=== PATIENT | female | born 1980 | race Caucasian/White ===

== ENCOUNTER 2020-09-18 18:21 | Emergency (ER) | payer MEDICAID, SELFPAY ==
[2020-07-27 14:38] VITALS: BMI 29.6
[2020-09-18 18:22] VITALS: BP 117/87; PULSE 100; RESP 18; TEMP 36.2; O2SAT 98; BMI 22.4
--- NOTE | 2020-09-18 19:09 | ED.VIS.BACK ---
HPI History of Present Illness Chief Complaint: Back Detail of Chief Complaint: Atraumatic low back pain. Informant: patient Onset/Context/Timing Onset: Weeks Injury: lifting Timing: Continuous Quality: Dull and Aching Location: Lumbar Current Severity: Mild Maximum Severity: Mild Worsened by: improves with Movement Relieved by: Remaining Still Narrative Narrative: 39-year-old female history of back problems and chronic pain management in the past. States that she was bending and lifting things and thinks she injured her lower back. States she is had pain for last 2 weeks. Denies any fever. No falls or trauma. No dysuria or pain with urination. She denies any fever or chills. She denies any weakness to her lower extremities. She denies any prior back surgery. Prior similar symptoms: Yes Recent Illness/Hospitalization: No PFSH PFSH Medical History Back pain Diarrhea Fever Headache Infected dental caries Home Medications diazepam [Valium] 5 mg PO TID PRN 4 Days #10 tab 09/18/20 [Rx Last Taken Unknown] Allergy/AdvReac Type Severity Reaction Status Date / Time No Known Allergies Allergy Verified 09/18/20 18:22 Social History Smoking Status: Current every day smoker tobacco type: cigarettes ROS ROS ED ROS Narrative Denies recent illness. Review of Systems ROS Unobtainable: Denies due to encephalopathy Constitutional Constitutional ED: Denies fever(s) Eyes Eyes: Denies change in vision ENT ENT ED: Denies ear pain or sore throat Cardiovascular Cardiovascular: Denies chest pain Respiratory/Chest Respiratory/Chest: Denies dyspnea Gastrointestinal Gastrointestinal: Denies abdominal pain, nausea or vomiting Genitourinary Genitourinary ED: Denies dysuria Musculoskeletal Musculoskeletal: Reports back pain Integumentary Denies rash Neurologic Neurologic: Denies headache(s) Psychiatric Psychiatric: Denies depression Endocrine Endocrinology: Denies polyuria Hematologic/Lymphatic Hematologic/Lymphatic: Denies easy bruising Allergic/Immunologic Allergic/Immunologic ED: Denies urticaria EXAM Physical Exam Narrative Exam Narrative: Middle-aged female no acute distress vital signs stable afebrile. Exam unremarkable. Abdomen soft nontender. Normal bowel sounds no peritoneal signs. Lungs are clear. Heart regular rate and rhythm. Back exam from a lying to a sitting upright position she had low back pain. There is reproducible paralumbar soft tissue tenderness consistent with myofascial strain and spasm of the right lower back. No discoloration. No redness or warmth. No bruising. Both lower extremities are neurovascularly intact with 5/5 motor strength. No cauda equina. Normal range of motion. Normal dorsi plantar flexion. Negative straight leg raise bilaterally. Const Vital Signs: 09/18/20 18:22 Temperature 97.1 F L Temperature Source Temporal Pulse Rate 100 Respiratory Rate 18 Blood Pressure 117/87 H Blood Pressure Mean 97 Pulse Ox 98 Oxygen Delivery Method Room Air HEENT Reports moist mucous membranes Negative for trauma or tenderness Eyes PERRL and EOMs intact bilaterally Neck no lymphadenopathy, supple and no JVD General: Negative for tenderness Resp normal respiratory effort and clear to auscultation bilaterally Cardio regular rate, regular rhythm and no murmurs GI normal to inspection, nondistended, normoactive bowel sounds, soft to palpation, non-tender and non-distended Back/Spine Negative for normal to inspection Thoracic Spine / Upper Back: paraspinal muscle tenderness Extremity normal to inspection General Extremety ED: Negative for edema or tenderness General Extremity: Negative for edema Neuro oriented x3 and no sensory deficits noted Sensorium / Orientation: alert Psych mental status grossly normal Skin no rashes or lesions noted and no wounds MDM MDM MDM Narrative Medical decision making narrative: Patient's history exam is consistent with myofascial strain and spasm of the right paralumbar area. Given an IM injection of Toradol and p.o. Valium. Prescription for limited Valium at home and Motrin. Discharge Plan Triage Chief Complaint: Back ED Provider: Gerald Michael Dx/Rx/DC Orders Clinical Impression: Back strain, Muscle spasm Instructions: ED Back Sprain/Strain, ED Muscle Spasm Prescriptions: New diazepam [Valium] 5 mg tablet 5 mg PO TID PRN (Reason: muscle spasm) 4 Days Qty: 10 RF: 0 Primary Care Provider: Care Physician,No Primary Referrals: Connor Gallegos MD [NON-STAFF] - 1 Week if not improving Care Physician,No Primary [Primary Care Provider] - Activity Restrictions/Additional Instructions: Hot shower warm bath to decrease pain and inflammation and decrease muscle spasm. Massage. Motrin 600 mg 3 times a day for the next 5 days. Valium as needed as a muscle relaxant. Do not drink or drive while using the Valium. Disposition Disposition: Home, self care
[2020-09-18] MEDS: diazePAM 5 MG Tablet 10 MG PO (19:17)
[2020-09-18] MEDS: Ketorolac 60 MG/2 ML Vial IM (19:17)
== END 2020-09-18 19:34 | disposition home or self-care (01) ==
PROVIDERS: Emergency Provider Emergency Medicine
DX: S39.012A Strain of muscle, fascia and tendon of lower back, initial encounter (principal); M62.830 Muscle spasm of back; X50.1XXA Overexertion from prolonged static or awkward postures, initial encounter; Y93.9 Activity, unspecified; Y92.9 Unspecified place or not applicable; F17.210 Nicotine dependence, cigarettes, uncomplicated
CPT/HCPCS: 96372; 99283

== ENCOUNTER 2020-10-18 06:25 | Emergency (ER) | payer MEDICAID, SELFPAY ==
[2020-10-18 06:26] VITALS: BP 151/91; PULSE 99; RESP 16; TEMP 36.2; O2SAT 100; BMI 21.4
--- NOTE | 2020-10-18 06:34 | CT_ITS ---
STUDY: CT ABDOMEN AND PELVIS WITHOUT CONTRAST REASON FOR EXAM: Female, 39 years old patient with left-sided flank pain. RADIATION DOSAGE (If Supplied By Facility): CTDIvol = ( 6.05 ) mGy, DLP = ( 270.46 ) mGycm TECHNIQUE: Transaxial images were obtained from the dome of the diaphragm to the symphysis pubis without oral contrast, and without intravenous contrast. Sagittal and coronal images were reconstructed. Individualized dose optimization techniques were used for this CT. COMPARISON: None. FINDINGS: The visualized lung bases are unremarkable. The visualized portions of the heart are within normal limits. Normal liver. There are multiple gallstones. Normal spleen. Normal pancreas. Normal bilateral adrenal glands. Normal right kidney. Normal left kidney. Normal visualized stomach. Is no obvious dilated bowel, ascites or pneumoperitoneum. The small bowel has a grossly normal appearance. Normal colon. The appendix is visualized and appears normal. There is mild atherosclerotic calcification of the abdominal aorta, without a demonstrated aneurysm. There is venous distention of the inferior vena cava (IVC). Normal retroperitoneum. Normal urinary bladder. Normal visualized uterus. Normal abdominal wall. Normal osseous structures. CT/Abdomen/Pelvis without Cont IMPRESSION: No CT evidence for hydronephrosis, hydroureter or radiopaque ureteral calculus. Electronically Signed: Montserrat Martinez MD at 8:51 EDT , Service support ,
--- NOTE | 2020-10-18 06:36 | EX.ED.DYSGE1 ---
HPI History of Present Illness Chief Complaint: Flank Pain Informant: patient Onset/Context/Timing Onset: Days (1 week) Context: Gradual Onset Timing: Waxes and wanes Current Severity: Moderate Maximum Severity: Severe Narrative Narrative: Patient presents with a 1 week history of left flank pain. She thinks that she strained something as she felt a pulling sensation after sitting up suddenly. She points to the left lower flank of her back and around the lateral side of her waist and describing the area of pain. She states last night she just could not get comfortable so she came in for evaluation. She is been taking ibuprofen for pain, last dose last evening. She denies urinary symptoms. She denies possibility of . No known history of ovarian cyst. [facility] Medical History Back pain Infected dental caries Home Medications cyclobenzaprine 10 mg PO BID PRN #10 tab 10/18/20 [Rx Last Taken Unknown] lidocaine [Lidoderm] 1 patch TOPICAL DAILY #6 ea 10/18/20 [Rx Last Taken Unknown] oxycodone-acetaminophen [Percocet] 1 tab PO Q6H PRN 3 Days #10 tab 10/18/20 [Rx Last Taken Unknown] Allergy/AdvReac Type Severity Reaction Status Date / Time No Known Allergies Allergy Verified 09/23/20 17:11 Social History Smoking Status: Current every day smoker tobacco type: cigarettes ROS ROS ED Constitutional Constitutional ED: Denies chills or fever(s) Eyes Eyes: Denies change in vision ENT ENT ED: Denies sore throat Cardiovascular Cardiovascular: Denies chest pain Respiratory/Chest Respiratory/Chest: Denies cough or dyspnea Gastrointestinal Gastrointestinal: Reports abdominal pain; Denies diarrhea, nausea or vomiting Genitourinary Genitourinary ED: Denies dysuria or hematuria Musculoskeletal Musculoskeletal: Reports back pain Integumentary Denies rash Neurologic Neurologic: Denies headache(s) or weakness Psychiatric Psychiatric: Denies anxiety or depression Endocrine Endocrinology: Denies polydipsia or polyuria Allergic/Immunologic Allergic/Immunologic ED: Denies urticaria EXAM Physical Exam Const Vital Signs: 10/18/20 06:26 10/18/20 08:19 Temperature 97.1 F L Temperature Source Temporal Pulse Rate 99 68 Respiratory Rate 16 16 Blood Pressure 151/91 H 124/84 H Blood Pressure Mean 111 97 Pulse Ox 100 94 Oxygen Delivery Method Room Air Room Air Positive well nourished and well developed General Appearance ED: well developed HEENT Reports normocephalic and head/scalp atraumatic Eyes PERRL and EOMs intact bilaterally Neck supple Chest Wall inspection of chest normal and palpation of chest normal Resp normal respiratory effort and clear to auscultation bilaterally Cardio regular rate and regular rhythm GI normal to inspection, nondistended, normoactive bowel sounds and non-tender Palpation: soft Back/Spine no CVA tenderness Back/Spine Narrative: Tenderness in the left lower back. No overlying skin changes. Extremity normal to inspection Neuro oriented x3 and no sensory deficits noted Sensorium / Orientation: alert Motor Exam: strength 5/5 throughout Psych mental status grossly normal Skin no rashes or lesions noted MDM MDM MDM Narrative Medical decision making narrative: Patient was given morphine, Toradol, Zofran, IV fluids. Lab work, urinalysis, CT flank obtained. Lab Data Attestation: I reviewed the patient's lab results. Labs: Laboratory Results - last 24 hr 10/18/20 10/18/20 10/18/20 07:10 07:10 07:10 WBC 8.3 RBC 4.62 Hgb 13.0 Hct 40.9 MCV 88.5 MCH 28.1 MCHC 31.8 L RDW Std Deviation 41.3 RDW Coeff of David 12.8 Plt Count 257 MPV 11.0 Immature Gran % (Auto) 0.200 Neut % (Auto) 47.4 Lymph % (Auto) 43.5 H [place] % (Auto) 6.2 Eos % (Auto) 1.6 Baso % (Auto) 1.1 H Absolute Neuts (auto) 3.9 Absolute Lymphs (auto) 3.61 Nucleated RBC % 0 Sodium 139 Potassium 3.4 L Chloride 109 H Carbon Dioxide 25.0 Anion Gap 5 BUN 8 Creatinine 0.68 Estim Creat Clear Calc 97.97 Est GFR (MDRD) Af Amer 121 Est GFR (MDRD) Non-Af 100 BUN/Creatinine Ratio 11.7 Glucose 121 H Calcium 8.5 Serum , Qual NEGATIVE Urine Color Urine Clarity Urine pH Ur Specific [place] Urine Protein Urine Glucose (UA) Urine Ketones Urine Occult Blood Urine Nitrite Urine Bilirubin Urine Urobilinogen Ur Leukocyte Esterase Urine RBC Urine WBC Ur Squamous Epith Cells Urine Bacteria Urine Mucus 10/18/20 07:35 WBC RBC Hgb Hct MCV MCH MCHC RDW Std Deviation RDW Coeff of David Plt Count MPV Immature Gran % (Auto) Neut % (Auto) Lymph % (Auto) [place] % (Auto) Eos % (Auto) Baso % (Auto) Absolute Neuts (auto) Absolute Lymphs (auto) Nucleated RBC % Sodium Potassium Chloride Carbon Dioxide Anion Gap BUN Creatinine Estim Creat Clear Calc Est GFR (MDRD) Af Amer Est GFR (MDRD) Non-Af BUN/Creatinine Ratio Glucose Calcium Serum , Qual Urine Color Yellow Urine Clarity Sl. Cloudy Urine pH 6.0 Ur Specific [place] 1.030 Urine Protein 30 H Urine Glucose (UA) Normal Urine Ketones Negative Urine Occult Blood 250 H Urine Nitrite Negative Urine Bilirubin Negative Urine Urobilinogen 1 H Ur Leukocyte Esterase 25 H Urine RBC 25-50 SEEN Urine WBC 0-5 SEEN Ur Squamous Epith Cells 0-5 SEEN Urine Bacteria 1+ Urine Mucus 2+ Radiography Diagnostic Testing: Radiology Impression Abdomen/Pelvis CT 10/18/20 06:34 IMPRESSION: No CT evidence for hydronephrosis, hydroureter or radiopaque ureteral calculus. Electronically Signed: Montserrat Martinez MD at 8:51 EDT , Service support , Treatment and Re-Evaluation Comments:: Upon returning from CT patient states that she still cannot comfortable and wanted something to help her relax and sleep. She was given an additional dose of morphine along with a dose of Flexeril. As soon as CT result was available I went back to evaluate the patient. She is sitting upright in bed crying. She states she still cannot get comfortable. CT does not reveal any evidence of kidney stone. There is a small amount of blood in her urine but she did just finished her menstrual cycle it may be secondary to this. Another option would be a radiolucent kidney stone. Regardless treatment will be the same. I did do an oars report. Patient's only had one prescription for a controlled substance in the last year. She will be given prescription for Lidoderm patch, Percocet, Flexeril. She is referred to local PCP to establish care and patient was advised that she must follow-up. She voices understanding and agreement. Discharge Plan Triage Chief Complaint: Flank Pain ED Provider: Yamel Russell Dx/Rx/DC Orders Clinical Impression: Back strain Instructions: ED Back Sprain/Strain Prescriptions: New oxycodone-acetaminophen [Percocet] 5-325 mg tablet 1 tab PO Q6H PRN (Reason: pain) 3 Days Qty: 10 RF: 0 cyclobenzaprine 10 mg tablet 10 mg PO BID PRN (Reason: muscle spasm) Qty: 10 RF: 0 lidocaine [Lidoderm] 5 % adhesive patch,medicated 1 patch topical DAILY Qty: 6 RF: 0 Primary Care Provider: Care Physician,No Primary Referrals: Mario Hidalgo MD [STAFF PHYSICIAN] - As soon as possible Care Physician,No Primary [Primary Care Provider] - Disposition Disposition: Home, Self Care
[2020-10-18] MEDS: 0.9% Normal Saline 1,000 ML 150 ML IV (06:57)
[2020-10-18] MEDS: Morphine 4 MG/ML Syringe IV ×2 (07:00→08:13)
[2020-10-18] MEDS: Ondansetron 4 MG/2 ML Vial IV (07:00)
[2020-10-18] MEDS: Ketorolac 30 MG/ML Syringe IV (07:00)
[2020-10-18 07:18] LABS: Absolute Lymphocyte Count 3.61 X10^3/uL (0.83-4.51); Absolute Neutrophil Count 3.9 X10^3/uL (2.0-7.7); Basophil# 0.09 X10^3/uL; Basophil% 1.1 % (0-1); Eosinophil# 0.13 X10^3/uL; Eosinophils% 1.6 % (0-5); Hematocrit 40.9 % (37-47); Lymphocyte # 3.61 X10^3/ul (0.83-4.51); Lymphocyte % 43.5 % (19-41); Mean Corp Hgb Conc 31.8 g/dL (32-36); Mean Corpuscular Hgb 28.1 pg (27.0-32.0); Mean Corpuscular Volume 88.5 fL (81-99); Monocyte# 0.51 X10^3/uL; Monocyte% 6.2 % (0-10); NRBC Flagged by Analyzer 0 % (0-5); Neutrophil # 3.93 X10^3/uL (2.7-7.7); Neutrophil % 47.4 % (47-70); Platelet Count 257 K/mm3 (150-450); RBC Distribution Width CV 12.8 % (11.6-14.6); RBC Distribution Width SD 41.3 fl (35.1-43.9); Red Blood Count 4.62 M/mm3 (4.2-5.4); White Blood Count 8.3 K/mm3 (4.4-11.0)
[2020-10-18 07:34] LABS: Anion Gap 5 (5-15); BUN 8 mg/dL (7-18); BUN/Creat Ratio 11.7 RATIO (10-20); Calcium,Total 8.5 mg/dL (8.5-10.1); Chloride 109 mmol/L (98-107); Creatinine, Serum 0.68 mg/dL (0.55-1.02); EST Glomerular Filtration Rate 100 mL/min (>60); Est Glom Filt Rate - Afr Amer 121 mL/min (>60); Estimated Creatinine Clearance 97.97 ml/min; Glucose 121 mg/dL (74-106); Internal QC Validated? YES +Cl - CLEAR BKGD; Potassium 3.4 mmol/L (3.5-5.1); Pregnancy, Serum, hCG Quali. NEGATIVE Negative; Sodium Level 139 mmol/L (136-145)
[2020-10-18 07:49] LABS: Color, Urine Yellow (Yellow); Glucose, Dipstick Normal (Normal); Ketone-Dipstick Negative (Negative); Leukocyte Esterase-Dipstick 25 /ul (Negative); Nitrite-Dipstick Negative (Negative); Occult Blood-Urine 250 /ul (Negative); Protein-Dipstick 30 mg/dl (Negative); Urine Bilirubin Dipstick Negative (Negative); Urine Clarity Sl. Cloudy (Clear); Urine Urobilinogen 1 mg/dl (Normal)
[2020-10-18 07:59] LABS: Bacteria 1+ /hpf (None Seen); Mucous, Urine 2+ /hpf (<or=2+); Red Blood Cells-Urine 25-50 SEEN /hpf (0-5); Squamous Epithelial Cells - UA 0-5 SEEN /hpf (5-10); White Blood Cells 0-5 SEEN /hpf (0-5)
[2020-10-18] MEDS: cycloBENZAPRine HCl 10 MG Tablet PO (08:13)
[2020-10-18 08:19] VITALS: BP 124/84; PULSE 68; RESP 16; O2SAT 94
[2020-10-18] MEDS: HYDROmorphone 0.5 MG/0.5 ML SYRINGE IV (09:13)
[2020-10-18] MEDS: Lidocaine 5% Patch 1 PATCH TOPICAL (09:15)
[2020-10-18 09:25] VITALS: BP 119/99; PULSE 68; RESP 16; O2SAT 98
== END 2020-10-18 09:26 | disposition home or self-care (01) ==
PROVIDERS: Emergency Provider Emergency Medicine
DX: S39.012A Strain of muscle, fascia and tendon of lower back, initial encounter (principal); X58.XXXA Exposure to other specified factors, initial encounter; Y93.9 Activity, unspecified; Y92.9 Unspecified place or not applicable; Y99.9 Unspecified external cause status; F17.210 Nicotine dependence, cigarettes, uncomplicated
CPT/HCPCS: 36415; 74176; 80048; 81001; 84703; 85025; 96361; 96374; 96375; 96376; 99285; J7030; A4216; J2405

== ENCOUNTER → 2020-11-15 11:50 | Outpatient (CLI) | payer MEDICAID, SELFPAY ==
[2020-10-18 06:26] VITALS: BMI 21.4
[2020-11-15 14:54] LABS: Absolute Lymphocyte Count 3.04 X10^3/uL (0.83-4.51); Absolute Neutrophil Count 4.5 X10^3/uL (2.0-7.7); Basophil# 0.06 X10^3/uL; Basophil% 0.7 % (0-1); Eosinophil# 0.11 X10^3/uL; Eosinophils% 1.4 % (0-5); Hematocrit 45.6 % (37-47); Hemoglobin 14.1 g/dL (12.0-15.0); Lymphocyte # 3.04 X10^3/ul (0.83-4.51); Lymphocyte % 37.6 % (19-41); Mean Corp Hgb Conc 30.9 g/dL (32-36); Mean Corpuscular Hgb 28.4 pg (27.0-32.0); Mean Corpuscular Volume 91.9 fL (81-99); Mean Platelet Vol. 12.1 fl (6.2-12.0); Monocyte# 0.33 X10^3/uL; Monocyte% 4.1 % (0-10); NRBC Flagged by Analyzer 0 % (0-5); Neutrophil # 4.52 X10^3/uL (2.7-7.7); Platelet Count 277 K/mm3 (150-450); RBC Distribution Width CV 13.3 % (11.6-14.6); RBC Distribution Width SD 45.2 fl (35.1-43.9); Red Blood Count 4.96 M/mm3 (4.2-5.4); White Blood Count 8.1 K/mm3 (4.4-11.0)
[2020-11-15 14:58] LABS: Color, Urine Yellow (Yellow); Glucose, Dipstick Normal (Normal); Ketone-Dipstick Negative (Negative); Leukocyte Esterase-Dipstick Negative /ul (Negative); Nitrite-Dipstick Negative (Negative); Occult Blood-Urine 150 /ul (Negative); Protein-Dipstick Negative (Negative); Specific Gravity, Urine 1.015 (1.002-1.030); Urine Bilirubin Dipstick Negative (Negative); Urine Clarity Sl. Cloudy (Clear); Urine Urobilinogen Normal (Normal); Urine pH 6.5 (5.0 - 8.0)
[2020-11-15 15:09] LABS: Red Blood Cells-Urine 5-10 SEEN /hpf (0-5); Squamous Epithelial Cells - UA 0-5 SEEN /hpf (5-10); White Blood Cells 0-5 SEEN /hpf (0-5)
[2020-11-15 15:10] LABS: Bacteria RARE /hpf (None Seen); Calcium Oxalate Crystals Ur RARE /hpf (<or=2+); Mucous, Urine 1+ /hpf (<or=2+)
[2020-11-15 15:25] LABS: AST(SGOT) 18 U/L (15-37); Alanine Aminotransfer ALT/SGPT 31 U/L (13-56); Alkaline Phosphatase 110 U/L (45-117); Anion Gap 3 (5-15); BUN 11 mg/dL (7-18); BUN/Creat Ratio 17.1 RATIO (10-20); Calcium,Total 8.9 mg/dL (8.5-10.1); Chloride 106 mmol/L (98-107); Cholesterol 254 mg/dL (200); Creatinine, Serum 0.64 mg/dL (0.55-1.02); EST Glomerular Filtration Rate 107 mL/min (>60); Est Glom Filt Rate - Afr Amer 130 mL/min (>60); Globulin 4.2 g/dL (2.2-4.2); Glucose 83 mg/dL (74-106); High Density Lipoprotein 64 mg/dL; Potassium 4.2 mmol/L (3.5-5.1); Protein, Total 8.2 g/dL (6.4-8.2); Sodium Level 138 mmol/L (136-145); Thyroid Stim Hormone (TSH) 2.15 uIU/mL (0.358-3.74); Triglycerides 89 mg/dL; Very Low Density Lipoprotein 18 mg/dL (5-40)
== END ==
PROVIDERS: PCP Internal Medicine; Visit Provider Internal Medicine
DX: M54.9 Dorsalgia, unspecified (principal); K59.00 Constipation, unspecified; R39.198 Other difficulties with micturition; R31.9 Hematuria, unspecified
CPT/HCPCS: 36415; 80053; 80061; 81001; 84443; 85025

== ENCOUNTER 2020-12-09 21:02 | Emergency (ER) | payer MEDICAID, SELFPAY ==
[2020-12-09 21:02] VITALS: BP 124/87; PULSE 85; RESP 16; TEMP 36.6; O2SAT 99; BMI 22.1
--- NOTE | 2020-12-10 00:13 | ED.RN ---
2130 PT LEFT WITHOUT BEING SEEN.PT HAD LEFT WITHOUT SAYING WHY.
== END 2020-12-09 21:30 | disposition left against medical advice (07) ==
LOC: ED 12-10 00:17
PROVIDERS: PCP Internal Medicine
DX: R69 Illness, unspecified (principal); Z53.21 Procedure and treatment not carried out due to patient leaving prior to being seen by health care provider
CPT/HCPCS: 87426

== ENCOUNTER → 2020-12-19 | Outpatient (CLI) | payer MEDICAID, SELFPAY ==
[2020-12-22 15:59] LABS: HPV APTIMA, High Risk Negative (Negative)
== END | disposition home or self-care (01) ==
LOC: LABSPEC 16:25
PROVIDERS: PCP Internal Medicine; Visit Provider Obstetrics & Gynecology
DX: Z12.4 Encounter for screening for malignant neoplasm of cervix (principal)
CPT/HCPCS: 87624; 88175; G0145

== ENCOUNTER 2021-01-24 19:47 | Emergency (ER) | payer MEDICAID, SELFPAY ==
[2021-01-24 19:47] VITALS: BP 129/101; PULSE 123; RESP 20; TEMP 36.6; O2SAT 98; BMI 18.9
[2021-01-24 19:58] VITALS: BP 135/99; PULSE 99; RESP 13
--- NOTE | 2021-01-24 20:14 | EKG12_ITS ---
Test Reason : CP Blood Pressure : / mmHG Vent. Rate : 080 BPM Atrial Rate : 080 BPM P-R Int : 120 ms QRS Dur : 076 ms QT Int : 342 ms P-R-T Axes : 081 069 103 degrees QTc Int : 394 ms Normal sinus rhythm with sinus arrhythmia ST & T wave abnormality, consider lateral ischemia Abnormal ECG Confirmed by JEEVAN STINSON, MILLIE ([id number]), editor producer COCO FELIPE ([id number]) on 01/27/2021 9:13:15 AM Referred By: ESPERANZA Confirmed By:MILLIE CHEW MD
--- NOTE | 2021-01-24 20:16 | EDS_ITS ---
HPI History of Present Illness Chief Complaint: Chest Pain Informant: patient Narrative Narrative: Patient presents reporting pain in her chest dyspnea along with pain everywhere for months. Seen her doctor months ago stating she was given medicines for her bowel movements. Cannot tell me anything about her chest or shortness of breath symptoms. She states she went to [facility] a few weeks ago had a work-up however unclear what was done. She states symptoms have been persisting. She denies past medical history. States brother NE at the age of 30. She denies being on any daily medications. Denies recent travel, surgeries, or immobilizations. No history of PE or DVT. States using ibuprofen however none today. Prior similar symptoms: Yes PFSH PFSH Medical History Back pain Infected dental caries Allergy/AdvReac Type Severity Reaction Status Date / Time No Known Allergies Allergy Verified 01/24/21 19:56 Family History Other Diabetes Malignant hyperthermia due to anesthesia Social History Smoking Status: Current every day smoker tobacco type: cigarettes alcohol intake: never substance use type: does not use ROS ROS ED Constitutional Constitutional ED: Denies chills, fever(s) or sweats Eyes Eyes: Denies change in vision ENT ENT ED: Denies dysphagia or sore throat Cardiovascular Cardiovascular: Reports chest pain; Denies leg edema, palpitations or racing heartbeat Respiratory/Chest Respiratory/Chest: Reports dyspnea; Denies cough or dyspnea on exertion Gastrointestinal Gastrointestinal: Denies abdominal pain, diarrhea, nausea or vomiting Genitourinary Genitourinary ED: Denies dysuria, hematuria or urinary frequency Musculoskeletal Musculoskeletal: Reports myalgias; Denies back pain, extremity pain or neck pain Integumentary Denies rash or wounds Neurologic Neurologic: Denies headache(s), paresthesias or weakness EXAM Physical Exam Const Vital Signs: 01/24/21 19:47 01/24/21 19:58 01/24/21 21:57 Temperature 97.8 F Temperature Source Temporal Pulse Rate 123 H 99 75 Respiratory Rate 20 H 13 20 H Respiratory Effort Normal Blood Pressure 129/101 H 135/99 H 109/85 H Blood Pressure Mean 110 111 93 Pulse Ox 98 98 Oxygen Delivery Method Room Air Room Air Room Air 01/24/21 23:02 Temperature Temperature Source Pulse Rate 72 Respiratory Rate 14 Respiratory Effort Blood Pressure 123/89 H Blood Pressure Mean 100 Pulse Ox 100 Oxygen Delivery Method Constitutional Narrative: Thin female, tearful during the exam requesting help for symptoms. Nontoxic. HEENT Reports moist mucous membranes normocephalic and atraumatic Eyes PERRL, EOMs intact bilaterally and conjunctivae normal General Eye ED: Yes normal appearance of both eyes Neck no lymphadenopathy and supple General: Negative for tenderness Chest Wall Chest: Negative for tenderness Resp normal respiratory effort and normal air movement Resp Narrative: Symmetric breath sounds. Effort and Inspection: symmetric chest movement; Negative for respiratory distress Cardio regular rate, regular rhythm and no murmurs Peripheral Pulses: pulses 2+ throughout GI normal to inspection, nondistended, normoactive bowel sounds and non-tender Palpation: Negative for guarding or rebound tenderness present Back/Spine no CVA tenderness and no thoracic nor lumbar tenderness Extremity normal to inspection Extremity Narrative: Pulses equal and symmetric bilaterally. General Extremety ED: Negative for edema or tenderness General Extremity: Negative for edema Neuro oriented x3 and no sensory deficits noted Sensorium / Orientation: awake and alert Skin no rashes or lesions noted and no wounds MDM MDM MDM Narrative Medical decision making narrative: Patient EKG T wave inversions lateral leads there is no old for comparison. Given fentanyl for pain. Cardiac work-up tro ponin x2 are negative. With her reported dyspnea and tachycardia on arrival, low risk Wells criteria for PE. D-dimer was obtained elevated 0.59. Patient with pain everywhere with her chest pains and dyspnea. Patient order for CTA chest abdomen pelvis to rule out dissection with pain. This was negative. There is no PE. Reevaluation heart rate improved into the 70s. Patient's heart score is a 3. Discussed tobacco cessation with the patient. Discussed her need for follow-up with her PCP with her ongoing symptoms for the past few months. Discussed likely need a stress echocardiogram as an outpatient. Discussed possibility of pulmonary testing with her tobacco history. Return precautions discussed. All questions were answered. Lab Data Attestation: I reviewed the patient's lab results. Labs: Laboratory Results - last 24 hr 01/24/21 01/24/21 01/24/21 20:05 20:05 20:05 WBC 7.4 RBC 5.00 Hgb 14.6 Hct 42.6 MCV 85.2 MCH 29.2 MCHC 34.3 RDW Std Deviation 39.6 RDW Coeff of David 12.8 Plt Count 297 MPV 11.7 Immature Gran % (Auto) 0.300 Neut % (Auto) 45.3 L Lymph % (Auto) 44.3 H [place] % (Auto) 8.0 Eos % (Auto) 1.2 Baso % (Auto) 0.9 Absolute Neuts (auto) 3.4 Absolute Lymphs (auto) 3.28 Nucleated RBC % 0 D-Dimer Quant (PE/DVT) 0.59 H* Sodium 139 Potassium 3.3 L Chloride 103 Carbon Dioxide 26.0 Anion Gap 10 BUN 14 Creatinine 1.15 H Estim Creat Clear Calc 52.02 Est GFR (MDRD) Af Amer 67 Est GFR (MDRD) Non-Af 55 L BUN/Creatinine Ratio 12.2 Glucose 115 H Calcium 9.8 Troponin I High Sens 3 Serum , Qual 01/24/21 01/24/21 20:05 23:16 WBC RBC Hgb Hct MCV MCH MCHC RDW Std Deviation RDW Coeff of David Plt Count MPV Immature Gran % (Auto) Neut % (Auto) Lymph % (Auto) [place] % (Auto) Eos % (Auto) Baso % (Auto) Absolute Neuts (auto) Absolute Lymphs (auto) Nucleated RBC % D-Dimer Quant (PE/DVT) Sodium Potassium Chloride Carbon Dioxide Anion Gap BUN Creatinine Estim Creat Clear Calc Est GFR (MDRD) Af Amer Est GFR (MDRD) Non-Af BUN/Creatinine Ratio Glucose Calcium Troponin I High Sens 4 Serum , Qual NEGATIVE Radiography Diagnostic Testing: Clinical Impression(s) from Imaging Studies Chest/Abdomen/Pelvis CTA 01/24/21 20:53 IMPRESSION: No evidence of aortic dissection. No pulmonary embolism. Early mild atherosclerosis abdominal and thoracic aorta and iliac vessels with no areas of significant stenosis. Cholelithiasis without cholecystitis. Multilevel thoracic vertebral body endplate herniations and significant endplate sclerosis and irregularity at T10-11 likely representing degenerative disc disease. Electronically Signed: Berto Ng DO at 22:54 EDT Tel , Service support , EKG Initial EKG: Attestation: I personally reviewed and interpreted this EKG as follows: Comments: Sinus rate of 80, no ST changes, T wave inversions V4 to V6. Discharge Plan Triage Chief Complaint: Chest Pain ED Provider: Willy Rosue Dx/Rx/DC Orders Clinical Impression: Chest pain, Dyspnea, Abnormal ECG, Tobacco dependence Instructions: ED Chest Pain, Uncertain Cause, ED Dyspnea Primary Care Provider: Lili Yeh Referrals: Lili Yeh MD [Primary Care Provider] - 3-5 Days Activity Restrictions/Additional Instructions: EKG notes T wave inversions leads V4 to V6. Cardiac work-up with enzymes negative. CTA chest abdomen pelvis negative for PE or dissection. Follow-up with your doctor for outpatient testing likely will need a stress echocardiogram. Stop smoking to decrease your risk factors. Use Tylenol or Motrin as needed for pain. Your Covid testing was negative. Disposition Disposition: Home, Self Care Discharge Date/Time: 01/25/21 00:15
[2021-01-24 20:31] LABS: Absolute Lymphocyte Count 3.28 X10^3/uL (0.83-4.51); Absolute Neutrophil Count 3.4 X10^3/uL (2.0-7.7); Basophil# 0.07 X10^3/uL; Basophil% 0.9 % (0-1); Eosinophil# 0.09 X10^3/uL; Eosinophils% 1.2 % (0-5); Hematocrit 42.6 % (37-47); Hemoglobin 14.6 g/dL (12.0-15.0); Lymphocyte # 3.28 X10^3/ul (0.83-4.51); Lymphocyte % 44.3 % (19-41); Mean Corp Hgb Conc 34.3 g/dL (32-36); Mean Corpuscular Hgb 29.2 pg (27.0-32.0); Mean Corpuscular Volume 85.2 fL (81-99); Mean Platelet Vol. 11.7 fl (6.2-12.0); Monocyte# 0.59 X10^3/uL; NRBC Flagged by Analyzer 0 % (0-5); Neutrophil # 3.36 X10^3/uL (2.7-7.7); Neutrophil % 45.3 % (47-70); Platelet Count 297 K/mm3 (150-450); RBC Distribution Width CV 12.8 % (11.6-14.6); RBC Distribution Width SD 39.6 fl (35.1-43.9); White Blood Count 7.4 K/mm3 (4.4-11.0)
[2021-01-24] MEDS: fentaNYL 100 MCG/2 ML Ampul 50 MCG IV (20:33)
[2021-01-24 20:39] LABS: Internal QC Validated? YES +Cl - CLEAR BKGD; Pregnancy, Serum, hCG Quali. NEGATIVE Negative
[2021-01-24 20:48] LABS: D-Dimer Quantitative (DVT/PE) 0.59 FEU/ug/m (0.27-0.49)
[2021-01-24 20:49] LABS: Anion Gap 10 (5-15); BUN 14 mg/dL (7-18); BUN/Creat Ratio 12.2 RATIO (10-20); Calcium,Total 9.8 mg/dL (8.5-10.1); Chloride 103 mmol/L (98-107); Creatinine, Serum 1.15 mg/dL (0.55-1.02); EST Glomerular Filtration Rate 55 mL/min (>60); Est Glom Filt Rate - Afr Amer 67 mL/min (>60); Estimated Creatinine Clearance 52.02 ml/min; Glucose 115 mg/dL (74-106); Potassium 3.3 mmol/L (3.5-5.1); Sodium Level 139 mmol/L (136-145); Troponin-I HS 3 pg/mL (3.0-54.0)
--- NOTE | 2021-01-24 20:53 | CT_ITS ---
CT angiography chest, abdomen and pelvis. COMPARISON: Unenhanced CT abdomen and pelvis 10/18/2020. HISTORY: Chest pain, elevated d-dimer. Rule out dissection. TECHNIQUE: Following 75 mL of ISOVUE-370, helical CT through the chest, abdomen and pelvis is obtained during arterial phase. Multiplanar coronal and sagittal reconstructions at 1.2 mm slice thickness axial reconstructions at 2.5 mm slice thickness, all using a soft tissue algorithm. FINDINGS: Normal three-vessel aortic arch. The visualized proximal subclavian arteries, right and left vertebral and right and left common carotid arteries are normal in appearance. Thoracic aorta shows normal diameter and contour with no luminal irregularity or filling defect to suggest dissection or intimal injury. There is no aneurysmal dilation. Abdominal aorta shows normal opacification and diameter. No filling defect or luminal irregularity abdominal aorta. At the bifurcation there is some mixed soft and calcified plaque beginning in the proximal right and left common iliac arteries with no associated stenosis. No aneurysmal dilation. Distal common femoral arteries show left greater than right, mild soft plaque without significant luminal stenosis. Pulmonary arteries are adequately opacified and there is no pulmonary artery filling defect to suggest embolism. Heart is normal size and contour with no evidence of heart strain or heart chamber enlargement. No hypertrophy. No pericardial effusion. There is no mediastinal or hilar lymphadenopathy. There is a single 3 mm hyperdense nodule left upper lobe, axial image 21 of 243. Lungs are otherwise clear without nodule, mass or airspace opacity. No pleural effusion. Central airways normal. Solid organs upper abdomen are normal CT appearance. There is a partially calcified stone within the gallbladder. Female pelvic organs are within normal limits. Urinary bladder is normal in appearance. There is no intra-abdominal lymphadenopathy or free fluid. The colon and small bowel are within normal limits of the exam. Note of enteric contrast distal colon suggesting possible recent CT. T10-11 level significant endplate sclerosis and irregularity likely representing degenerative disc disease. Endplate irregularities consistent with herniation pits seen in the mid and distal thoracic vertebrae. No vertebral body height loss. No fracture or focal osseous lesion. Normal thoracic kyphosis and lumbar lordosis. CT/CTA Chst, Abd, Pel W and/or WO IMPRESSION: No evidence of aortic dissection. No pulmonary embolism. Early mild atherosclerosis abdominal and thoracic aorta and iliac vessels with no areas of significant stenosis. Cholelithiasis without cholecystitis. Multilevel thoracic vertebral body endplate herniations and significant endplate sclerosis and irregularity at T10-11 likely representing degenerative disc disease. Electronically Signed: Berto Ng DO at 22:54 EDT Tel , Service support ,
[2021-01-24 21:57] VITALS: BP 109/85; PULSE 75; RESP 20; O2SAT 98
[2021-01-24 23:02] VITALS: BP 123/89; PULSE 72; RESP 14; O2SAT 100
[2021-01-24 23:54] LABS: Troponin-I HS 4 pg/mL (3.0-54.0)
[2021-01-25] MEDS: Ketorolac 15 MG/ML Vial IV (00:06)
== END 2021-01-25 00:15 | disposition home or self-care (01) ==
PROVIDERS: Emergency Provider Emergency Medicine; PCP Internal Medicine
DX: R07.9 Chest pain, unspecified (principal); R06.00 Dyspnea, unspecified; R94.31 Abnormal electrocardiogram [ECG] [EKG]; F17.210 Nicotine dependence, cigarettes, uncomplicated; Z82.49 Family history of ischemic heart disease and other diseases of the circulatory system
CPT/HCPCS: 36415; 71275; 74174; 80048; 84484; 84703; 85025; 85379; 87426; 93005; 96374; 96375; 99285; Q9967; A4216

== ENCOUNTER 2021-01-25 09:54 | Emergency (ER) | payer MEDICAID, SELFPAY ==
[2021-01-25 09:56] VITALS: BP 126/95; PULSE 84; RESP 16; TEMP 36.4; O2SAT 99; BMI 19.0
[2021-01-25 10:05] VITALS: O2SAT 100
[2021-01-25] MEDS: Ziprasidone IM 20 MG/ML VIAL 10 MG IM (10:12)
--- NOTE | 2021-01-25 10:14 | EDS_ITS ---
HPI History of Present Illness Chief Complaint: Shortness of Breath Narrative Narrative: Patient presenting with significant other via EMS due to dyspnea and I cannot calm down. The significant other states she was at the ED at [place] earlier in the week, and here at this emergency department yesterday for the same symptoms. He states nothing is different today compared with yesterday. The patient is hysterical, she provides little useful information, most of it comes from the significant other, he states they have been dating for 5 years. She states she is having a panic attack because she cannot breathe. She has had symptoms for months that include myalgias all over and constipation, I am not sure what else, the significant other states she is complained of shortness of breath for months as well but it has just been much worse in the past week as well as the rest of the symptoms. She presents via EMS, and while she has been rolled to her bed she continues crying out loud screaming I cannot calm down and I cannot breathe and also adds it is the drugs, it is the drugs!. Her vital signs are normal. Her emotional state greatly limits history and review of systems. She is cooperative with exam. The significant other states she has not abused any drugs in the past week but has in the past, but admits that recently in one of the ED visit she was given fentanyl as part of her therapeutics. She has abrasions that appear to be relatively recent on her volar left wrist and are parallel. When nurses screen her for suicidality, she screams yes, I want to ! [facility] Medical History (Updated 01/25/21 @ 11:[address] Yusuf Valentin MD) Acid reflux Back pain Constipation Infected dental caries Tobacco dependence Allergy/AdvReac Type Severity Reaction Status Date / Time No Known Allergies Allergy Verified 01/25/21 10:05 Family History Other Diabetes Malignant hyperthermia due to anesthesia Social History Smoking Status: Current every day smoker tobacco type: cigarettes alcohol intake: never substance use type: does not use ROS ROS ED Review of Systems ROS Unobtainable: other Details: emotional state Constitutional Constitutional ED: Reports body ache(s) and malaise Respiratory/Chest Respiratory/Chest: Reports dyspnea; Denies cough Gastrointestinal Gastrointestinal: Reports other Details: When asked if patient has abdominal pain her responses I hurt all over Psychiatric Psychiatric: Reports as per HPI, panic attacks and suicidal thoughts; Denies hallucinations EXAM Physical Exam Const Vital Signs: 01/25/21 09:56 01/25/21 10:05 01/25/21 11:55 Temperature 97.6 F L Temperature Source Oral Pulse Rate 84 Respiratory Rate 16 24 H Respiratory Effort Normal Respiratory Depth Normal Respiratory Pattern Normal Blood Pressure 126/95 H Blood Pressure Mean 105 Pulse Ox 99 Oxygen Delivery Method Room Air Room Air Positive well nourished and well developed General Appearance ED: well developed and NAD HEENT Reports moist mucous membranes HEENT Narrative: Edentulous. Normal tongue and oropharynx. No stridor. normocephalic and atraumatic Eyes PERRL and EOMs intact bilaterally Neck full ROM and supple Resp no retractions, no use of accessory muscles, clear to auscultation bilaterally and percussion normal Resp Narrative: Tachypneic while agitated and crying, with no retractions or accessory muscle use and clear lungs with equal breath sounds bilaterally. No subcutaneous emphysema or tenderness in the chest wall. Excellent air movement. No stridor. Effort and Inspection: able to speak in complete sentences Cardio regular rate, regular rhythm and no murmurs Rate: Negative for tachycardic GI non-tender and non-distended Auscultation: normoactive bowel sounds Palpation: soft Back/Spine no CVA tenderness Back/Spine Narrative: Normal inspection except for several scars that are well- healed and without erythema General Back: other FROM Extremity normal to inspection and full ROM Extremity Narrative: Normal to inspection except for relatively recent 4 or so parallel abrasions to the volar left wrist that the significant other admits was self-inflicted relatively recently. They are scabbed and not bleeding and not infected. General Extremety ED: Negative for edema, pulses abnormal or tenderness General Extremity: Negative for edema or pulses abnormal Neuro oriented x3, CN's II-XII intact bilaterally and no sensory deficits noted Sensorium / Orientation: awake and alert Motor Exam: strength 5/5 throughout Psych cooperative and speech normal Psych Narrative: Tearful, agitated, hysterical Skin no rashes or lesions noted and no wounds MDM MDM MDM Narrative Medical decision making narrative: Social work evaluated this patient while we were working her up medically. Most of the labs I obtained were repeat except for liver enzymes which were negative. Her troponin is negative again, it was done twice yesterday and negative both times. I did not repeat/reperform any of the imaging since she had CT of the chest abdomen pelvis yesterday that was unremarkable. She also had a yesterday that was negative. She had a drug screen ordered but did not produce urine. We ordered that here, but after giving her Geodon this really settled her down, but even before that she was talking to social work and breathing normally and conversing in normal sentences during their conversation although before and after she was screaming at the top of her lungs that she could not breathe with normal vital signs. We did get urine from her eventually and it came back negative. I also did a Covid PCR that is negative. Social work agrees that this is likely psychogenic. She is not actively suicidal. She and the significant other both confirm that several days ago when she performed self-inflicted abrasions to her left wrist she was not trying to kill herself, more trying to get attention and take out stress which she has done multiple times in the past. After an extended conversation with a significant other, social work does not think she needs to be pink slipped against her will, and I am fine with this, especially since the significant other wants to take her home with him and prefers psychiatric follow-up. We refer them to the counseling center since they will be able to get in with a psychiatrist there, an appointment was made and they are amenable to that plan. Patient was standing at the door wanting to leave, using her cell phone comfortably without dyspnea or shouting and this is all consistent with psychogenic etiology of this. Lab Data Attestation: I reviewed the patient's lab results. Labs: Laboratory Results - last 24 hr 01/25/21 01/25/21 01/25/21 10:25 10:25 10:25 WBC 5.4 RBC 4.66 Hgb 13.5 Hct 39.7 MCV 85.2 MCH 29.0 MCHC 34.0 RDW Std Deviation 40.3 RDW Coeff of David 13.1 Plt Count 236 MPV 11.3 Immature Gran % (Auto) 0.200 Neut % (Auto) 39.5 L Lymph % (Auto) 50.5 H [place] % (Auto) 6.5 Eos % (Auto) 2.4 Baso % (Auto) 0.9 Absolute Neuts (auto) 2.1 Absolute Lymphs (auto) 2.70 Nucleated RBC % 0 Sodium 139 Potassium 4.1 Chloride 104 Carbon Dioxide 25.0 Anion Gap 10 BUN 15 Creatinine 0.90 Estim Creat Clear Calc 66.72 Est GFR (MDRD) Af Amer 88 Est GFR (MDRD) Non-Af 73 BUN/Creatinine Ratio 16.7 Glucose 116 H Calcium 9.4 Total Bilirubin 0.80 AST 29 ALT 17 Alkaline Phosphatase 73 Total Creatine Kinase Troponin I High Sens 3 Total Protein 8.1 Albumin 4.1 Globulin 4.0 Albumin/Globulin Ratio 1.0 Urine Opiates Screen Urine Methadone Screen Ur Barbiturates Screen Ur Phencyclidine Scrn Ur Amphetamines Screen U Methamphetamin-MDMA U Benzodiazepines Scrn Urine Cocaine Screen U Cannabinoids Screen Ur Drug Screen Comment Ethyl Alcohol COVID-19 ([place]) Not Detected 01/25/21 01/25/21 01/25/21 10:25 10:25 12:50 WBC RBC Hgb Hct MCV MCH MCHC RDW Std Deviation RDW Coeff of David Plt Count MPV Immature Gran % (Auto) Neut % (Auto) Lymph % (Auto) [place] % (Auto) Eos % (Auto) Baso % (Auto) Absolute Neuts (auto) Absolute Lymphs (auto) Nucleated RBC % Sodium Potassium Chloride Carbon Dioxide Anion Gap BUN Creatinine Estim Creat Clear Calc Est GFR (MDRD) Af Amer Est GFR (MDRD) Non-Af BUN/Creatinine Ratio Glucose Calcium Total Bilirubin AST ALT Alkaline Phosphatase Total Creatine Kinase 144 Troponin I High Sens Total Protein Albumin Globulin Albumin/Globulin Ratio Urine Opiates Screen NEGATIVE Urine Methadone Screen NEGATIVE Ur Barbiturates Screen NEGATIVE Ur Phencyclidine Scrn NEGATIVE Ur Amphetamines Screen NEGATIVE U Methamphetamin-MDMA NEGATIVE U Benzodiazepines Scrn NEGATIVE Urine Cocaine Screen NEGATIVE U Cannabinoids Screen NEGATIVE Ur Drug Screen Comment Ethyl Alcohol 5.0 COVID-19 ([place]) Rhythm Strip Rhythm Strip: Sinus Rhythm Rate: 85 Ectopy: None Discharge Plan Triage Chief Complaint: Shortness of Breath ED Provider: Yusuf Valentin Dx/Rx/DC Orders Clinical Impression: Anxiety, Dyspnea, Myalgia Instructions: Anxiety Disorders Tx Therapy Primary Care Provider: Lili Yeh Referrals: [facility] [GROUP OF PHYSICIANS] - 02/10/21 10:00 am Lili Yeh MD [Primary Care Provider] - Disposition Disposition: Home, Self Care
[2021-01-25 10:35] LABS: Absolute Neutrophil Count 2.1 X10^3/uL (2.0-7.7); Basophil# 0.05 X10^3/uL; Basophil% 0.9 % (0-1); Eosinophil# 0.13 X10^3/uL; Eosinophils% 2.4 % (0-5); Hematocrit 39.7 % (37-47); Hemoglobin 13.5 g/dL (12.0-15.0); Lymphocyte % 50.5 % (19-41); Mean Corpuscular Volume 85.2 fL (81-99); Mean Platelet Vol. 11.3 fl (6.2-12.0); Monocyte# 0.35 X10^3/uL; Monocyte% 6.5 % (0-10); NRBC Flagged by Analyzer 0 % (0-5); Neutrophil # 2.11 X10^3/uL (2.7-7.7); Neutrophil % 39.5 % (47-70); Platelet Count 236 K/mm3 (150-450); RBC Distribution Width CV 13.1 % (11.6-14.6); RBC Distribution Width SD 40.3 fl (35.1-43.9); Red Blood Count 4.66 M/mm3 (4.2-5.4); White Blood Count 5.4 K/mm3 (4.4-11.0)
[2021-01-25 10:59] LABS: AST(SGOT) 29 U/L (15-37); Alanine Aminotransfer ALT/SGPT 17 U/L (13-56); Albumin, Serum 4.1 g/dL (3.2-5.0); Alkaline Phosphatase 73 U/L (45-117); Anion Gap 10 (5-15); BUN 15 mg/dL (7-18); BUN/Creat Ratio 16.7 RATIO (10-20); Calcium,Total 9.4 mg/dL (8.5-10.1); Chloride 104 mmol/L (98-107); EST Glomerular Filtration Rate 73 mL/min (>60); Est Glom Filt Rate - Afr Amer 88 mL/min (>60); Estimated Creatinine Clearance 66.72 ml/min; Glucose 116 mg/dL (74-106); Potassium 4.1 mmol/L (3.5-5.1); Protein, Total 8.1 g/dL (6.4-8.2); Sodium Level 139 mmol/L (136-145); Troponin-I HS 3 pg/mL (3.0-54.0)
[2021-01-25 11:09] LABS: CPK Total, Creatine Kinase 144 U/L (26-192)
--- NOTE | 2021-01-25 11:11 | ED.RN ---
in with pt, pt screaming i cant breathe. pt sitting upright in bed spo2 98% on room air. when pt have moments of being able to calm herself, pt has unlabored respirs with spo2 in the high 90's. pt states that she wants to leave, pt's iv removed. pt informed that the doctor wants her evaluated by our social worker delinquency prevention because of threats made of potentially hurting herself. pt had superficial cuts to the inner left wrist. when asked when she did those cuts pts stated i have had those for days and that was from my cat. this nurse along with alexys skaggs rn confronted pt with they were not there yesterday when she was in the emgerency department while being evaluated for chest pain. this nurse reported to the pt that the howard were not there when this nurse started her iv. alexys skaggs rn aggreed that those howard were not on the pt yesterday while she was under her care in the ed.
--- NOTE | 2021-01-25 11:15 | CM.ED ---
SOCIAL WORK ASSESSMENT Referral Source: Dr. Valentin Reason for Consult: Mental Health Evaluation Chief Compliant: Patient presents to the ER by marisela. Upon this worker entering department patient screaming from room 13, I can't breath. Patient was also seen in ER yesterday per staff. Marital/Social History: Single- patient reports is engaged to Nicola Tejada who is present in ER with patient. Living Situation: Home with fiance Support/Resources: family, fiance-Nicola Tejada History: None Education and Employment History: graduated high school, unemployed Mental Health Treatment/History: depression and anxiety, not treated. Triggers/Stressors: health issues, I've been sick for a while. Coping Skills: taking a walk Abuse Issues: Patient denies any history of emotional, physical, or sexual abuse. Substance Abuse History: Patient reports everything. Patient states has not used in over a year. Patient states, they gave me fentanyl yesterday while in ER. Risk to Self/Others: Suicidal- Patient denies any suicidal ideation, plan, or intent. Patient questioned about superficial cuts to left wrists. Patient states, they are from my mom's cat. Homicidal- Patient denies any homicidal ideation. Mental Status Exam: Orientation- A&Ox3 Memory: fair Appearance/General Behavior: disheveled Mood/Affect: anxious, elevated upon first entering room. Patient quickly became calm while talking with this worker. Communication Pattern: responds to questions Thought Process: paranoia, Patient states I believe something is wrong even though they say their isn't. I can't breath, my body is shutting down. General Intellectual Functioning: Average Judgement: fair Insight: fair Assessment: Met with patient in room. Introduced role and reason for referral. Patient presented to ER by marisela, boyfriend stepped out of room for patient to be assessed. Patient states stressors from being sick. Patient reports has not felt well for some time. Patient discussed history of substance abuse and states used everything. Patient reports has been clean for over a year. Patient states the hospital gave me fentanyl yesterday. Patient denies any suicidal ideation, plan, or intent. Patient questioned about superficial cuts to left wrist and patient's states, they are from my mom's cat, you can call and ask her. Patient provided this worker with mother's contact information and states you can talk to my fiance. Patient reports wishes to return home. Met with patient's significant other, Nicola Tejada in waiting room. Introduced role and reason for consult. Nicola states patient did cut herself and states, she does that for attention. She will make threats or comments, but would never harm herself. She does it when she is fighting with her mother or children. Nicola states patient has not been well for several months and he has been assisting patient with getting appointments with PCP and dentist. Nicola states patient followed with counseling in the past and believes her anxiety and stress are getting to her. Nicola reports patient does not have custody of her children and lives with him in an apartment. Nicola reports feels safe with taking her home and requests this worker assist in setting up intake appointment to get patient in with psychiatrist. Collaboration with Dr. Valentin who is in agreement with plan for home with outpatient follow up. Met with patient who is in agreement with this worker setting up [facility]. Call to [facility], intake appointment scheduled for 02/13/21 @ 10am. Patient and patient's significant other updated on appointment time and date. Patient remains calm, sitting in bed. Plan: Home with intake appointment scheduled with [facility]. Alan Malagon, PATENT PARALEGAL, ASSISTANT COUNSEL
[2021-01-25 11:55] VITALS: RESP 24
[2021-01-25 13:29] LABS: Amphetamine Urine VISTA NEGATIVE (<1000 ng/mL); Barbiturate Urine VISTA NEGATIVE (< 200 ng/mL); Benzodiazepine Urine VISTA NEGATIVE (< 200 ng/mL); Cocaine Urine VISTA NEGATIVE (< 300 ng/mL); Ecstacy Urine VISTA NEGATIVE (< 500 ng/mL); Methadone Urine VISTA NEGATIVE (< 300 ng/mL); PCP Urine VISTA NEGATIVE (< 25 ng/mL); THC Urine VISTA NEGATIVE (< 50 ng/mL); Vista UDS pH Range 5
--- NOTE | 2021-01-25 13:51 | ED.RN ---
This patient requested discharge paperwork, physician notified. Patient left without paperwork and states I will pickle processor paperwork later, we are leaving
== END 2021-01-25 14:18 | disposition home or self-care (01) ==
PROVIDERS: Emergency Provider Emergency Medicine; PCP Internal Medicine
DX: F41.0 Panic disorder [episodic paroxysmal anxiety] (principal); M79.10 Myalgia, unspecified site; R06.02 Shortness of breath; F17.210 Nicotine dependence, cigarettes, uncomplicated
CPT/HCPCS: 80053; 80307; 82077; 82550; 84484; 85025; 87635; 96372; U0005; A4216; J3486; U0003

== ENCOUNTER 2021-01-25 22:12 | Emergency (ER) | payer MEDICAID, SELFPAY ==
[2021-01-25 22:12] VITALS: BP 112/81; PULSE 98; RESP 24; TEMP 36.3; O2SAT 97; BMI 18.8
--- NOTE | 2021-01-25 22:24 | EX.ED.DYSGE1 ---
HPI History of Present Illness Chief Complaint: Shortness of Breath Informant: patient Narrative Narrative: Patient states she needs something for anxiety. She cannot breathe and her whole body is shutting down. This has been an ongoing issue for many years. She used to treat this with [id number] and street drugs. When I asked her what she used to use she states everything. She states she really has not used for 2 years. She states ever since then her whole body has shut down. She was seen recently and received a shot of fentanyl. She cannot define this further. But she states it shut down due to the anxiety. Nothing makes her symptoms better or worse. She is a smoker but is not wheezing and denies any history of lung disease. Past medical history: Polypharmacy abuse, anxiety, back pain Current medications none Allergies none She denies prior surgeries Lives with boyfriend, prior drug user as above. No longer using. [facility] Medical History Acid reflux Back pain Constipation Infected dental caries Tobacco dependence Home Medications NK 01/25/21 [History Last Taken Unknown] hydroxyzine pamoate [Vistaril] 25 mg PO TID PRN #20 cap 01/25/21 [Rx Last Taken Unknown] Allergy/AdvReac Type Severity Reaction Status Date / Time No Known Allergies Allergy Verified 01/25/21 10:05 Family History Other Diabetes Malignant hyperthermia due to anesthesia Social History Smoking Status: Former smoker alcohol intake: never substance use type: does not use ROS ROS ED Constitutional Constitutional ED: Denies fever(s) or sweats Eyes Eyes: Denies blurry vision or change in vision ENT ENT ED: Denies rhinorrhea or sore throat Cardiovascular Cardiovascular: Reports palpitations; Denies chest pain Respiratory/Chest Respiratory/Chest: Reports dyspnea; Denies cough or sputum Gastrointestinal Gastrointestinal: Denies abdominal pain, nausea or vomiting Genitourinary Genitourinary ED: Denies dysuria Musculoskeletal Musculoskeletal: Denies back pain or neck pain Integumentary Denies rash Neurologic Neurologic: Reports paresthesias; Denies headache(s) or weakness Psychiatric Psychiatric: Reports anxiety; Denies suicidal ideation or suicidal thoughts Endocrine Endocrinology: Denies polydipsia or polyuria Allergic/Immunologic Allergic/Immunologic ED: Denies urticaria EXAM Physical Exam Const Vital Signs: 01/25/21 22:12 01/25/21 22:15 01/26/21 00:11 Temperature 97.3 F L Temperature Source Oral Pulse Rate 98 71 Respiratory Rate 24 H 16 Respiratory Effort Normal Respiratory Depth Normal Respiratory Pattern Tachypnea Blood Pressure 112/81 H Blood Pressure Mean 91 Pulse Ox 97 99 Oxygen Delivery Method Room Air Patient is crying while in the room. However I can talk to her and get her to stop crying and then her breathing calms down also. She does not look toxic or ill. She does not look short of breath. Her heart rate is normal. Her oxygen level is 98% on room air showing no hypoxia. Positive well nourished and well developed General Appearance ED: well developed and NAD HEENT Reports moist mucous membranes Negative for trauma or tenderness Eyes Negative for EOMs intact bilaterally General Eye ED: Negative for pale conjunctiva or scleral icterus Neck No no JVD Resp normal respiratory effort and clear to auscultation bilaterally Effort and Inspection: Negative for pain with movement Auscultation: Negative for rales, rhonchi, wheezes or diminished lung sounds Cardio regular rate, regular rhythm and no murmurs GI normal to inspection, nondistended, normoactive bowel sounds and non-tender Palpation: soft Back/Spine no CVA tenderness Extremity Negative for normal to inspection Extremity Narrative: Normal peripheral pulses x4. General Extremety ED: Negative for edema or tenderness General Extremity: Negative for edema Neuro oriented x3 Sensorium / Orientation: alert Psych Mood & Affect: anxious Skin no rashes or lesions noted MDM MDM MDM Narrative Medical decision making narrative: I reviewed the patient's recent visits. She has had extensive evaluation. She has had lab work. She had CTA chest abdomen pelvis. She states that this is anxiety. Her exam and reviewing her past history and recent work-up all point to anxiety. I do not think further blood work or imaging is necessary at this time. We will try to get her calm down here. We will refer her to psychiatry as an outpatient. Patient's recheck. She is quiet and calm in bed. She is asking for an inhaler because she used one as a child. I listen to her lungs again. She has excellent air motion and no wheezing. I explained that I think an inhaler would worsen her symptoms and not help her. She states she was given a shot today and that seemed to help her and she wanted that shot. I explained that her symptoms are already resolved. She does not need an injection at this time. I will give her Vistaril here and to go. I encouraged follow-up counseling for anxiety. Discharge Plan Triage Chief Complaint: Shortness of Breath ED Provider: Garcia Cooper Dx/Rx/DC Orders Clinical Impression: Panic attack Instructions: ED Panic Attack Prescriptions: New hydroxyzine pamoate [Vistaril] 25 mg capsule 25 mg PO TID PRN (Reason: anxiety) Qty: 20 RF: 0 No Action NK RF: 0 Primary Care Provider: Lili Yeh Referrals: Lili Yeh MD [Primary Care Provider] - As soon as possible Disposition Disposition: Home, Self Care Discharge Date/Time: 01/26/21 00:20
[2021-01-25] MEDS: LORazepam 1 MG Tablet PO (22:29)
[2021-01-26] MEDS: hydrOXYzine PAM 25 MG Capsule PO (00:09)
[2021-01-26 00:11] VITALS: PULSE 71; RESP 16; O2SAT 99
== END 2021-01-26 00:20 | disposition home or self-care (01) ==
PROVIDERS: Emergency Provider Emergency Medicine; PCP Internal Medicine
DX: F41.0 Panic disorder [episodic paroxysmal anxiety] (principal); Z87.891 Personal history of nicotine dependence
CPT/HCPCS: 80053; 80307; 82077; 82550; 84484; 85025; 87635; 94640; 96372; 99282; 99285; U0005; A4216; J3486; U0003

== ENCOUNTER 2021-01-26 22:41 | Emergency (ER) | payer MEDICAID, SELFPAY ==
[2021-01-26 22:42] VITALS: BP 122/86; PULSE 102; RESP 14; TEMP 36.8; O2SAT 98; BMI 19.3
[2021-01-26 22:50] VITALS: RESP 17
[2021-01-26 22:56] VITALS: PULSE 91; RESP 16
[2021-01-26] MEDS: Albuterol 2.5 MG/3 ML VIAL.NEB. 1.25 MG INHALATION (22:56)
[2021-01-26] MEDS: LORazepam 1 MG Tablet PO (22:57)
--- NOTE | 2021-01-26 23:14 | EDS_ITS ---
HPI History of Present Illness Chief Complaint: Shortness of Breath Informant: patient Narrative Narrative: Patient here for the third time and approximately 24 hours for the same thing, anxiety and shortness of breath. She states I cannot breathe as she is trying and anxious. She has had multiple rounds of testing including CT angiography of the chest, abdomen, pelvis which was unremarkable. We made appointment at the counseling center after having social work evaluate her yesterday. She is not suicidal right now. She has some sharp chest pain that hurts to push on. Last night she received a prescription for some Vistaril, she took some and it did not help anything. [facility] Medical History (Updated 01/26/21 @ 23:[address] Yusuf Valentin MD) Acid reflux Anxiety Back pain Constipation Infected dental caries Panic attack Tobacco dependence Home Medications hydroxyzine pamoate [Vistaril] 25 mg PO TID PRN #20 cap 01/25/21 [Rx Last Taken Unknown] Allergy/AdvReac Type Severity Reaction Status Date / Time No Known Allergies Allergy Verified 01/26/21 22:42 Family History Other Diabetes Malignant hyperthermia due to anesthesia Social History Smoking Status: Former smoker alcohol intake: never substance use type: does not use ROS ROS ED Constitutional Constitutional ED: Denies chills or fever(s) Eyes Eyes: Denies change in vision or diplopia ENT ENT ED: Denies rhinorrhea or sore throat Cardiovascular Cardiovascular: Reports chest pain; Denies palpitations Respiratory/Chest Respiratory/Chest: Reports dyspnea; Denies cough Gastrointestinal Gastrointestinal: Denies abdominal pain, diarrhea, nausea or vomiting Genitourinary Genitourinary ED: Denies dysuria or hematuria Musculoskeletal Musculoskeletal: Denies back pain or neck pain Integumentary Denies abscess or rash Neurologic Neurologic: Denies headache(s), paresthesias or weakness Psychiatric Psychiatric: Reports anxiety; Denies suicidal ideation EXAM Physical Exam Const Vital Signs: 01/26/21 22:42 01/26/21 22:49 01/26/21 22:50 Temperature 98.2 F Temperature Source Temporal Pulse Rate 102 H Respiratory Rate 14 17 Respiratory Effort Normal Non-Labored Respiratory Depth Normal Respiratory Pattern Normal Blood Pressure 122/86 H Blood Pressure Mean 98 Pulse Ox 98 Oxygen Delivery Method Room Air Room Air Room Air 01/26/21 22:56 Temperature Temperature Source Pulse Rate 91 Respiratory Rate 16 Respiratory Effort Respiratory Depth Respiratory Pattern Normal Blood Pressure Blood Pressure Mean Pulse Ox Oxygen Delivery Method Positive well nourished and well developed General Appearance ED: well developed and NAD HEENT Reports moist mucous membranes normocephalic and atraumatic Eyes PERRL and EOMs intact bilaterally Neck full ROM and supple Resp normal respiratory effort and clear to auscultation bilaterally Cardio regular rate, regular rhythm and no murmurs Rate: Negative for tachycardic GI non-tender and non-distended Auscultation: normoactive bowel sounds Palpation: soft Back/Spine no CVA tenderness General Back: other FROM Extremity normal to inspection General Extremety ED: Negative for edema, pulses abnormal or tenderness General Extremity: Negative for edema or pulses abnormal Neuro oriented x3, CN's II-XII intact bilaterally and no sensory deficits noted Sensorium / Orientation: awake and alert Motor Exam: strength 5/5 throughout Psych cooperative and speech normal Mood & Affect: anxious and tearful Skin no rashes or lesions noted and no wounds MDM MDM MDM Narrative Medical decision making narrative: Again this patient has had multiple rounds of cardiopulmonary testing that was all normal. I do not think this needs to be repeated, she has the same symptoms as she did when I saw her personally yesterday. Heart rate 91, respirations 16, blood pressure 122/86, temp 98.2, pulse ox 98 on room air. We did a PCR Covid yesterday to confirm that she does not have Covid. She has had normal chest x-rays, EKGs, blood work, CT angiography of the chest abdomen pelvis. She really wants a breathing treatment. I told her I think it is going to make her worse and probably not help. Trying to make the decision on whether to do this or not is making her anxiety worse. I gave her an albuterol treatment but only 1.25 mg of albuterol so as not to make her anxiety a lot worse. Did not help her breathing, and did not make her tachycardic or more panicky. She was given a dose of Ativan and I will discharge her home to follow-up as scheduled with counseling center. Discharge Plan Triage Chief Complaint: Shortness of Breath ED Provider: Yusuf Valentin Dx/Rx/DC Orders Clinical Impression: Chest pain, Panic attack Instructions: ED Panic Attack Prescriptions: No Action hydroxyzine pamoate [Vistaril] 25 mg capsule 25 mg PO TID PRN (Reason: anxiety) Qty: 20 RF: 0 Primary Care Provider: Lili Yeh Referrals: Counseling,Center [GROUP OF PHYSICIANS] - 02/10/21 10:00 am Lili Yeh MD [Primary Care Provider] - (Call for follow-up appointment if you cannot wait until being seen at the counseling center) Disposition Disposition: Home, Self Care
[2021-01-26 23:26] VITALS: BP 117/85; PULSE 100; RESP 17; O2SAT 99
== END 2021-01-26 23:31 | disposition home or self-care (01) ==
LOC: ED 23:29
PROVIDERS: Emergency Provider Emergency Medicine; PCP Internal Medicine
DX: F41.0 Panic disorder [episodic paroxysmal anxiety] (principal); Z87.891 Personal history of nicotine dependence
CPT/HCPCS: 94640

== ENCOUNTER 2021-02-01 12:21 | Emergency (ER) | payer MEDICAID, SELFPAY ==
[2021-02-01] VITALS (8 sets, daily range): BP systolic 102–126; BP diastolic 71–95; PULSE 64–82; RESP 16–20; TEMP 35.8–36.7; O2SAT 97–100; BMI 18.8
--- NOTE | 2021-02-01 12:48 | EX.ED.VIS.PS ---
HPI HPI - Psych History of Present Illness Chief Complaint: Shortness of Breath Informant: patient and friend Onset/Context/Timing Onset: Days Context: Gradual Onset Timing: Intermittent Current Severity: Moderate Maximum Severity: Severe Narrative Narrative: 40-year-old female history of reflux and anxiety and panic attacks. 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 She has had multiple recent emergency department visits with extensive work-up for chest pain and shortness of breath all of which have been negative. Primary care physician called and sent her in today because he thinks she needs admitted for psychiatric illness. Basically her anxiety and panic attacks are paralyzing her. She is unable to live her daily life. Prior similar symptoms: Yes Recent Illness/Hospitalization: No PFSH PFSH Medical History Acid reflux Anxiety Back pain Constipation Infected dental caries Panic attack Tobacco dependence Home Medications NK 02/01/21 [History Last Taken Unknown] Allergy/AdvReac Type Severity Reaction Status Date / Time No Known Allergies Allergy Verified 02/01/21 12:27 Family History Other Diabetes Malignant hyperthermia due to anesthesia Social History Smoking Status: Former smoker alcohol intake: never substance use type: does not use ROS ROS ED ROS Narrative Denies recent illness. Has had chest pain and dyspnea which has been worked up and negative. Review of Systems ROS Unobtainable: Denies due to encephalopathy Constitutional Constitutional ED: Denies fever(s) Eyes Eyes: Denies change in vision ENT ENT ED: Denies ear pain Cardiovascular Cardiovascular: Reports chest pain and palpitations Respiratory/Chest Respiratory/Chest: Reports dyspnea; Denies cough Gastrointestinal Gastrointestinal: Denies abdominal pain Genitourinary Genitourinary ED: Denies dysuria Musculoskeletal Musculoskeletal: Denies myalgias Integumentary Denies rash Neurologic Neurologic: Denies headache(s) Psychiatric Psychiatric: Denies depression Endocrine Endocrinology: Denies polyuria Hematologic/Lymphatic Hematologic/Lymphatic: Denies easy bruising Allergic/Immunologic Allergic/Immunologic ED: Denies urticaria EXAM Physical Exam Narrative Exam Narrative: Middle-aged female very anxious. Tearful. Crying. Vital signs are stable afebrile. She does not look septic toxic. She has no acute medical distress. HEENT exam unremarkable. Neck nontender no JVD. Lungs clear to auscultation. Heart regular rhythm rate about 80 no murmur. Chest nontender. Abdomen soft nontender. Extremities moves all 4. Calves are nontender no edema no cords. Neurologically she is awake alert with no focal motor deficits. Const Vital Signs: 02/01/21 12:22 02/01/21 12:35 02/01/21 13:30 Temperature 96.4 F L Temperature Source Temporal Pulse Rate 82 64 Respiratory Rate 20 H 16 Respiratory Effort Short of Breath Respiratory Depth Shallow Respiratory Pattern Tachypnea Blood Pressure 124/95 H 102/87 H Blood Pressure Mean 104 92 Pulse Ox 100 97 Oxygen Delivery Method Room Air Room Air Positive well nourished and well developed; Negative for obese, cachectic, contractures or unkempt General Appearance ED: well developed and NAD; Negative for unkempt, cachectic, contractures or pallor Nutritional Appearance: Negative for cachectic or obese HEENT Reports moist mucous membranes normocephalic and atraumatic; Negative for trauma or tenderness Eyes PERRL and EOMs intact bilaterally Neck no lymphadenopathy, supple and no JVD General: Negative for tenderness Resp normal respiratory effort and clear to auscultation bilaterally Auscultation: Negative for rales, rhonchi or wheezes Cardio S1 normal heart sound, S2 normal heart sound and no murmurs Rate: regular rate Rhythm: regular rhythm GI non-tender, non-distended and no masses Inspection: Negative for abdominal distention Auscultation: normoactive bowel sounds Palpation: soft; Negative for tender or guarding Back/Spine no CVA tenderness General Back: Negative for CVA tenderness Extremity normal to inspection General Extremety ED: Negative for edema or tenderness General Extremity: Negative for edema Neuro oriented x3 and CN's II-XII intact bilaterally Sensorium / Orientation: alert, oriented to person, oriented to place and oriented to time; Negative for orientation impaired, confused, lethargic or stuporous Motor Exam: strength 5/5 throughout Psych thought process normal, cooperative, speech normal and activity/motor behavior normal Psych Narrative: Very very anxious. Tearful. Time break down crying. Appearance: Negative for unkempt Skin General Skin Exam: Negative for jaundice or pallor Lesions: no lesions Rashes: no rashes MDM MDM MDM Narrative Medical decision making narrative: Middle-aged female history of prior drug abuse. History of anxiety. Multiple recent emergency department visits worked up extensively with no diagnosis other than panic attacks and anxiety. Presents very anxious today. Will be treated with Ativan. I will have our vp digital marketing social media and crm see her to see if there is a way we can get her either a psychiatric admission or close follow-up. Our vp digital marketing social media and crm has evaluated the patient and she agrees that she needs admitted and is working on placement. Lab Data Lab results narrative: I did review the patient's most recent ER visits including extensive laboratory and imaging work-ups all of which were unremarkable. She does not need those repeated today. Discharge Plan Triage Chief Complaint: Shortness of Breath ED Provider: Gerald Michael Dx/Rx/DC Orders Clinical Impression: Panic attack, Anxiety, History of drug abuse Prescriptions: No Action NK RF: 0 Primary Care Provider: Lili Yeh Referrals: Lili Yeh MD [Primary Care Provider] - Disposition Disposition: Psychiatric Hospital or Unit
[2021-02-01] MEDS: LORazepam 1 MG Tablet 2 MG PO (12:54)
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
--- NOTE | 2021-02-01 14:41 | EKG12_ITS ---
Test Reason : SOB Blood Pressure : / mmHG Vent. Rate : 061 BPM Atrial Rate : 061 BPM P-R Int : 112 ms QRS Dur : 080 ms QT Int : 408 ms P-R-T Axes : 031 062 063 degrees QTc Int : 410 ms Normal sinus rhythm Nonspecific ST and T wave abnormality Abnormal ECG Confirmed by LEILANI STINSON, MARIA A ([id number]), editor house organ COCO FELIPE ([id number]) on 02/06/2021 10:07:57 A M Referred By: ESPERANZA Confirmed By:DAVID DUKE MD
[2021-02-01 14:55] LABS: Internal QC Validated? YES +Cl - CLEAR BKGD; Pregnancy, Urine Negative Negative
[2021-02-01 15:06] LABS: Amphetamine Urine VISTA NEGATIVE (<1000 ng/mL); Barbiturate Urine VISTA NEGATIVE (< 200 ng/mL); Benzodiazepine Urine VISTA NEGATIVE (< 200 ng/mL); Cocaine Urine VISTA NEGATIVE (< 300 ng/mL); Ecstacy Urine VISTA NEGATIVE (< 500 ng/mL); Methadone Urine VISTA NEGATIVE (< 300 ng/mL); PCP Urine VISTA NEGATIVE (< 25 ng/mL); THC Urine VISTA NEGATIVE (< 50 ng/mL); Vista UDS pH Range 5
--- NOTE | 2021-02-01 16:26 | CM.ED ---
Addendum entered by Tish Malagon 02/01/21 16:30: Referral faxed to [facility] Original Note: SOCIAL WORK Referral faxed to [facility], pending review at this time. Alan Malagon, FLATCAR WHACKER, CUFF PRESSER
--- NOTE | 2021-02-01 17:24 | CM.ED ---
SOCIAL WORK Patient accepted to [facility] by Dr. Landeros to the [facility]. Nurse to call report to [phone] option 1. Call to [facility], ETA 3 hours. Staff updated. Call to [facility] to inform placement obtained. Alan Malagon, VIDEO PRODUCTION ASSISTANT, LAUNCH CHECK OUT
[2021-02-01] MEDS: hydrOXYzine PAM 25 MG Capsule 50 MG PO (20:55)
[2021-02-01] MEDS: LORazepam 1 MG Tablet PO (23:53)
== END 2021-02-02 01:00 ==
PROVIDERS: Emergency Provider Emergency Medicine; PCP Internal Medicine
DX: F41.0 Panic disorder [episodic paroxysmal anxiety] (principal); F11.21 Opioid dependence, in remission; Z87.891 Personal history of nicotine dependence
CPT/HCPCS: 80307; 81025; 87426; 93005; 99285

== ENCOUNTER 2021-02-10 18:55 | Emergency (ER) | payer MEDICAID, SELFPAY ==
[2021-02-10 18:56] VITALS: BP 109/57; PULSE 90; RESP 20; TEMP 36.1; O2SAT 98; BMI 18.6
--- NOTE | 2021-02-10 19:09 | RAD_ITS ---
EXAM: XR CHEST, 1 VIEW CLINICAL INDICATION: Chest pain TECHNIQUE: Frontal view of the chest. This report was created using [employer] report generation technology. COMPARISON: None. FINDINGS: LUNGS AND PLEURAL SPACES: Unremarkable. No consolidation or edema. No pneumothorax. No effusion. HEART: Unremarkable. Cardiac silhouette not enlarged. MEDIASTINUM: Central airways and mediastinal contour are unremarkable. BONES/JOINTS: Unremarkable. SOFT TISSUES: Unremarkable. RAD/Chest 1 View (Portable) IMPRESSION: No radiographic evidence of acute cardiopulmonary disease. Electronically Signed: Tripp Ascencio MD at 21:03 EST , Service support ,
--- NOTE | 2021-02-10 19:10 | EKG12_ITS ---
Test Reason : CP Blood Pressure : / mmHG Vent. Rate : 081 BPM Atrial Rate : 081 BPM P-R Int : 126 ms QRS Dur : 076 ms QT Int : 360 ms P-R-T Axes : 080 071 084 degrees QTc Int : 418 ms Normal sinus rhythm with sinus arrhythmia Nonspecific T wave abnormality Abnormal ECG Confirmed by MAGALIS STINSON, MATT ([id number]), copy editor COCO FELIPE ([id number]) on 02/13/2021 11:01:08 AM Referred By: Confirmed By:MATT BLANCAS MD
--- NOTE | 2021-02-10 19:14 | ED.VIS.DYS ---
HPI History of Present Illness Chief Complaint: Chest Pain Narrative Narrative: Patient presents via EMS with complaints of chest pain and shortness of breath. Of note, she has had multiple visits in the past for this. The most recent being on 02/01/2021, approximately 9 days ago. In review of her electronic medical record, she was here because she was sent in by her primary care physician who thought that her panic attacks and anxiety was crippling her. She states that she has become panicked, short of breath, and having chest pain like she has been for years. She takes trazodone that was started years ago, but it is not working. She states she is frustrated that she does not know what to do and that nothing is working for her. She does state that on her last visit to the emergency department she was sent to [place] and stayed in a psychiatric facility for 72 hours and was released. She is having another panic attack. She denies any suicidal ideation but states that she needs something for anxiety and that nothing is working. [facility] Medical History Acid reflux Anxiety Back pain Constipation Infected dental caries Panic attack Tobacco dependence Home Medications NK 02/01/21 [History Last Taken Unknown] Allergy/AdvReac Type Severity Reaction Status Date / Time No Known Allergies Allergy Verified 02/10/21 18:59 Family History Other Diabetes Malignant hyperthermia due to anesthesia Social History Smoking Status: Former smoker alcohol intake: never substance use type: does not use ROS ROS ED ROS Narrative Constitutional: No fever, no chills. HEENT: No sore throat. No neck pain. No loss of vision. No rhinorrhea. Cardiovascular: Positive central chest pain and tightness. No palpitations. No pedal edema. Respiratory: No cough, positive shortness of breath. Abdominal: No abdominal pain. No nausea. No vomiting. Genitourinary: No dysuria. No hematuria. Musculoskeletal: No myalgias. No arthralgias. Neurologic: No headaches. No dizziness. No lightheadedness. Skin: No rash. No change in color. Psychiatric: No depression. Increase anxiety. Denies suicidal ideation. EXAM Physical Exam Narrative Exam Narrative: Afebrile. Vital signs noted. HEENT: Normocephalic. Atraumatic. PERRL, EOMI. Neck soft and supple. No point tenderness or step off. Cardiovascular: Regular rate and rhythm. No murmurs, rubs, or gallops appreciated. Respiratory: Positive tachypnea. Lungs clear to auscultation bilaterally. Gastrointestinal: Abdomen soft, nontender, with normoactive bowel sounds. No rebound or guarding. Neurological: Awake. Alert. Nonfocal, nonlateralizing. Skin: No rash. Normal color. No pallor. Musculoskeletal: No pedal edema. Full range of motion extremities. Psychiatric: Positive anxiety. No suicidal ideation. Almost tearful on examination. Const Vital Signs: 02/10/21 18:56 02/10/21 18:59 Temperature 97 F L Temperature Source Temporal Pulse Rate 90 Respiratory Rate 20 H Respiratory Effort Normal Non-Labored Respiratory Pattern Normal Blood Pressure 109/57 L Blood Pressure Mean 74 Pulse Ox 98 Oxygen Delivery Method Room Air MDM MDM MDM Narrative Medical decision making narrative: Comprehensive work-up was pursued. Her EKG demonstrates normal sinus rhythm with sinus arrhythmia at [address] changes. Patient states that she does not want to be readmitted to a psychiatric facility. She will be given Ativan 2 mg intravenously and a chest pain/shortness of breath work-up will be pursued including medical screening labs in the event that she would need psychiatric care. CBC shows normal white count of 6.3, hemoglobin stable at 13.3. Potassium slightly low at 3.3 which was replaced orally. Her high-sensitivity troponin is negative at 4. She is had constant pain for over 6 hours. Ethyl alcohol is negative at 12.0. Serum is negative. She has yet to produce a urine sample. She began screaming out, stating that she was very anxious and short of breath. Initially she was administered Ativan 2 mg intramuscularly. However, this made her anxiety worse and she began screaming out again stating that she was very short of breath. Her pulse ox is 98% on room air. Her chest x-ray shows no acute process. She was administered Haldol 5 mg intramuscularly. Initially, I had social work see her. They feel that as she required admission last time, that crisis should assess her. Currently, she is pending her crisis evaluation. She will be signed out to the [facility] physician, Dr. Townsend, for final disposition. Should crisis not feel that she requires emergent psychiatric admission, I feel she could be discharged to take her home medications. Currently, she is in stable condition. Lab Data Attestation: I reviewed the patient's lab results. Labs: Laboratory Results - last 24 hr 02/10/21 02/10/21 02/10/21 20:15 20:15 20:15 WBC 6.3 RBC 4.53 Hgb 13.3 Hct 38.5 MCV 85.0 MCH 29.4 MCHC 34.5 RDW Std Deviation 38.7 RDW Coeff of David 12.6 Plt Count 242 MPV 10.8 Immature Gran % (Auto) 0.200 Neut % (Auto) 39.1 L Lymph % (Auto) 50.5 H [place] % (Auto) 8.6 Eos % (Auto) 0.6 Baso % (Auto) 1.0 Absolute Neuts (auto) 2.5 Absolute Lymphs (auto) 3.16 Nucleated RBC % 0 Sodium 140 Potassium 3.3 L Chloride 105 Carbon Dioxide 28.0 Anion Gap 7 BUN 14 Creatinine 0.67 Estim Creat Clear Calc 87.38 Est GFR (MDRD) Af Amer 125 Est GFR (MDRD) Non-Af 103 BUN/Creatinine Ratio 21.0 H Glucose 88 Calcium 9.4 Total Bilirubin 0.40 AST 16 ALT 17 Alkaline Phosphatase 69 Troponin I High Sens 4 Total Protein 7.9 Albumin 4.1 Globulin 3.8 Albumin/Globulin Ratio 1.1 Serum , Qual Ur Drug Screen Comment Ethyl Alcohol 12.0 02/10/21 02/10/21 20:15 21:36 WBC RBC Hgb Hct MCV MCH MCHC RDW Std Deviation RDW Coeff of David Plt Count MPV Immature Gran % (Auto) Neut % (Auto) Lymph % (Auto) [place] % (Auto) Eos % (Auto) Baso % (Auto) Absolute Neuts (auto) Absolute Lymphs (auto) Nucleated RBC % Sodium Potassium Chloride Carbon Dioxide Anion Gap BUN Creatinine Estim Creat Clear Calc Est GFR (MDRD) Af Amer Est GFR (MDRD) Non-Af BUN/Creatinine Ratio Glucose Calcium Total Bilirubin AST ALT Alkaline Phosphatase Troponin I High Sens Total Protein Albumin Globulin Albumin/Globulin Ratio Serum , Qual NEGATIVE Ur Drug Screen Comment Ethyl Alcohol Radiography Diagnostic Testing: Clinical Impression(s) from Imaging Studies Chest X-Ray 02/10/21 19:09 IMPRESSION: No radiographic evidence of acute cardiopulmonary disease. Electronically Signed: Tripp Ascencio MD at 21:03 EST , Service support , Discharge Plan Triage Chief Complaint: Chest Pain ED Provider: Babak Thomson Dx/Rx/DC Orders Prescriptions: No Action NK RF: 0 Primary Care Provider: Lili Yeh
[2021-02-10] MEDS: LORazepam 2 MG/ML Syringe IM (19:32)
[2021-02-10] MEDS: Haloperidol Lactate 5 MG/ML Vial IM (19:44)
[2021-02-10 20:25] LABS: Absolute Lymphocyte Count 3.16 X10^3/uL (0.83-4.51); Absolute Neutrophil Count 2.5 X10^3/uL (2.0-7.7); Basophil# 0.06 X10^3/uL; Eosinophil# 0.04 X10^3/uL; Eosinophils% 0.6 % (0-5); Hematocrit 38.5 % (37-47); Hemoglobin 13.3 g/dL (12.0-15.0); Lymphocyte # 3.16 X10^3/ul (0.83-4.51); Lymphocyte % 50.5 % (19-41); Mean Corp Hgb Conc 34.5 g/dL (32-36); Mean Corpuscular Hgb 29.4 pg (27.0-32.0); Mean Platelet Vol. 10.8 fl (6.2-12.0); Monocyte# 0.54 X10^3/uL; Monocyte% 8.6 % (0-10); NRBC Flagged by Analyzer 0 % (0-5); Neutrophil # 2.45 X10^3/uL (2.7-7.7); Neutrophil % 39.1 % (47-70); Platelet Count 242 K/mm3 (150-450); RBC Distribution Width CV 12.6 % (11.6-14.6); RBC Distribution Width SD 38.7 fl (35.1-43.9); Red Blood Count 4.53 M/mm3 (4.2-5.4); White Blood Count 6.3 K/mm3 (4.4-11.0)
[2021-02-10 20:44] LABS: Internal QC Validated? YES +Cl - CLEAR BKGD; Pregnancy, Serum, hCG Quali. NEGATIVE Negative
[2021-02-10 20:46] LABS: ALB/GLOB Ratio 1.1 RATIO (0.9-2.4); AST(SGOT) 16 U/L (15-37); Alanine Aminotransfer ALT/SGPT 17 U/L (13-56); Albumin, Serum 4.1 g/dL (3.2-5.0); Alkaline Phosphatase 69 U/L (45-117); Anion Gap 7 (5-15); BUN 14 mg/dL (7-18); Calcium,Total 9.4 mg/dL (8.5-10.1); Chloride 105 mmol/L (98-107); Creatinine, Serum 0.67 mg/dL (0.55-1.02); EST Glomerular Filtration Rate 103 mL/min (>60); Est Glom Filt Rate - Afr Amer 125 mL/min (>60); Estimated Creatinine Clearance 87.38 ml/min; Globulin 3.8 g/dL (2.2-4.2); Glucose 88 mg/dL (74-106); Potassium 3.3 mmol/L (3.5-5.1); Protein, Total 7.9 g/dL (6.4-8.2); Sodium Level 140 mmol/L (136-145); Troponin-I HS 4 pg/mL (3.0-54.0)
--- NOTE | 2021-02-10 20:52 | CM.ED ---
Addendum entered by Cari Soriano 02/10/21 21:30: ESAU faxed referral Packet to Crisis Team. Cari DAO Addendum entered by Cari Soriano 02/10/21 21:24: ESAU spoke to Miya at Crisis. She will check with RN to see if patient is awake. ESAU unable to interview patient as she fell asleep and was unable to be woke up by this video game script writer. Cari ChristieBurgess Original Note: ESAU Note Referral Source: RN said that patient is reporting that the dye you put in my IV's is killing me. ESAU met with patient in the ED room. Patient said that she is waiting for a referral to the place in [place] and closer to home. Patient said that she is doing good. Patient said that she went to [facility] for a couple of days and it was ok. Patient said that [facility] gave her medication and she is taking them and they are helping. Patient said that she went to some groups but wanted something closer to the home. Patient then called her fiance, Nicola Tejada and put him on speaker pone. He said that [facility] was a waste of time... we have to find another place. Nicola said she needs therapy or nutrition to eat solid food. Nicola said that both he and her had dental surgery and they pulled their teeth and she had x tra trauma which has been for 4-6 weeks. Nicola said that patient said that her stomach hurts and he knows it's hunger pains. Nicola said that her sleep is not good lately and only sleeps when exhausted. Patient feel asleep while talking to Nicola but Nicola remained on the phone. Nicola said that patient sleeps 2-4 hours at night and then 1-2 hours during the day. Nicola said that patient stays in be but moves around and is able to bath herself. He said that patient can not eat enough and she has lost weight. Nicola said that patient drinks liquids but not enough. Nicola said that patient gets worked up and can't take the pain and anxiety. He said patient has been experiencing this for 1 month. He again stated that patient has panic attacks and feels claustrophobic and can't breathe. Nicola said that he has been with patient for 5 years. Nicola said that he has had it [facility] but they couldn't get a referral. Nicola said that [facility] has no beds. Nciola said that patient has not slept for days. Nicola said that patient needs to calm down to stop the panic attacks and her erratic behavior. ESAU what erratic behavior she is experiencing and he said she feels she is being suffocated. ESAU asked about the fci that patient needs at a SNF and he said nutrition .. to help her calm down and get food in there and nurse her back to help. Nicola reports patient is not on medication. Nicola said that he is trying to get into [facility] on the for patient. Nicola said that patient is not suicidal and not in danger... she says some comments occasionally just like anyone. Nicola said that he has no concern with her coming back. Nicoal said that the panic attacks need to be controlled and they have not tried much. SW asked Nicola what he felt would be beneficial and he said Valium calmed her down and Xanax she slept all night. SW explained that they have tried natural which he reported was melatonin but it was not working. Nicola said that [facility] and they want patient to be assessed but he reported frustration that [facility] did not make a referral. Nicola said that he is aware of the IOP/PHP program at [facility] and he will provide transportation and take patient to the appointments as needed. Nicola said something has to be done. SW attempted to wake patient up but she would not respond. ESAU updated MD. Since patient has not been interviewed and there is concern that patient was just discharged from [facility] and is reporting continuation of symptoms that crisis needs to evaluate her. ESAU unable to do this as patient is unable to be woken up. ESAU called Crisis and spoke to international first officer answering machine. They will contact international first officerinbound call center representative, Miya. Cari DAO
--- NOTE | 2021-02-10 21:22 | ED.RN ---
crisis will come an eval patient for second opinion. once patient is wake enough to answer all questions give crisis a call and they will be back in to see patient
[2021-02-10 22:26] LABS: Amphetamine Urine VISTA NEGATIVE (<1000 ng/mL); Barbiturate Urine VISTA NEGATIVE (< 200 ng/mL); Benzodiazepine Urine VISTA NEGATIVE (< 200 ng/mL); Cocaine Urine VISTA NEGATIVE (< 300 ng/mL); Ecstacy Urine VISTA NEGATIVE (< 500 ng/mL); Methadone Urine VISTA NEGATIVE (< 300 ng/mL); PCP Urine VISTA NEGATIVE (< 25 ng/mL); THC Urine VISTA NEGATIVE (< 50 ng/mL); Vista UDS pH Range 5
[2021-02-10 22:55] VITALS: RESP 16
[2021-02-11 01:21] VITALS: RESP 16
[2021-02-11 04:39] VITALS: RESP 16
[2021-02-11] MEDS: Potassium Chloride Oral Tablet 20 MEQ 40 MEQ PO (05:33)
[2021-02-11 05:37] VITALS: BP 104/69; PULSE 57; RESP 16; O2SAT 95
[2021-02-11 07:18] VITALS: PULSE 66; RESP 17; O2SAT 98
== END 2021-02-11 07:21 | disposition home or self-care (01) ==
PROVIDERS: Emergency Provider Emergency Medicine; PCP Internal Medicine
DX: R07.9 Chest pain, unspecified (principal); R06.02 Shortness of breath; F41.9 Anxiety disorder, unspecified; Z87.891 Personal history of nicotine dependence
CPT/HCPCS: 71045; 80053; 80307; 82077; 84484; 84703; 85025; 87426; 93005; 96372; 99284

== ENCOUNTER 2021-02-14 00:27 | Emergency (ER) | payer MEDICAID, SELFPAY ==
[2021-02-14 00:27] VITALS: BP 134/76; PULSE 75; RESP 18; TEMP 36.6; O2SAT 98; BMI 19.2
--- NOTE | 2021-02-14 00:49 | EKG12_ITS ---
Test Reason : DYSRYTHMIA Blood Pressure : / mmHG Vent. Rate : 065 BPM Atrial Rate : 065 BPM P-R Int : 128 ms QRS Dur : 076 ms QT Int : 410 ms P-R-T Axes : 056 074 072 degrees QTc Int : 426 ms Normal sinus rhythm Normal ECG Confirmed by JEEVAN STINSON, MILLIE ([id number]), restaurant expeditor COCO FELIPE ([id number]) on 02/15/2021 9:59:55 AM Referred By: ELVIN Confirmed By:MILLIE CHEW MD
[2021-02-14] MEDS: LORazepam 1 MG Tablet PO (00:54)
--- NOTE | 2021-02-14 02:13 | EX.ED.VIS.PS ---
HPI HPI - Psych History of Present Illness Chief Complaint: Anxiety Informant: patient and spouse/S.O. Narrative Narrative: Patient returns to the ER secondary to anxiety. She has been in the ER multiple times recently with similar. She gets chest heaviness and shortness of breath with her anxiety. She was admitted to [facility] in early January. She was seen by her PCP yesterday and started on BuSpar and Lexapro. Patient states tonight her anxiety got worse and she could not calm down. She is having difficulty sleeping. [facility] Medical History Acid reflux Anxiety Back pain Constipation Infected dental caries Panic attack Substance abuse Tobacco dependence Home Medications buspirone 7.5 mg tablet 7.5 mg PO TID #60 tab 02/13/21 [Rx Last Taken Unknown] escitalopram oxalate 10 mg tablet 10 mg PO DAILY #30 tab 02/13/21 [Rx Last Taken Unknown] lorazepam [Ativan] 1 mg PO TID PRN #14 tab 02/14/21 [Rx Last Taken Unknown] Allergy/AdvReac Type Severity Reaction Status Date / Time No Known Allergies Allergy Verified 02/14/21 00:36 Family History Other Diabetes Malignant hyperthermia due to anesthesia Social History Smoking Status: Former smoker alcohol intake: never substance use type: does not use ROS ROS ED Constitutional Constitutional ED: Denies chills or fever(s) Eyes Eyes: Denies change in vision ENT ENT ED: Denies sore throat Cardiovascular Cardiovascular: Reports chest pain Respiratory/Chest Respiratory/Chest: Reports dyspnea; Denies cough Gastrointestinal Gastrointestinal: Denies abdominal pain, diarrhea, nausea or vomiting Genitourinary Genitourinary ED: Denies dysuria Musculoskeletal Musculoskeletal: Denies back pain Integumentary Denies rash Neurologic Neurologic: Denies headache(s) or weakness Psychiatric Psychiatric: Reports anxiety; Denies depression or suicidal thoughts Allergic/Immunologic Allergic/Immunologic ED: Denies urticaria EXAM Physical Exam Const Vital Signs: 02/14/21 00:27 02/14/21 02:26 Temperature 97.9 F Temperature Source Temporal Pulse Rate 75 72 Respiratory Rate 18 15 Blood Pressure 134/76 H Blood Pressure Mean 95 Pulse Ox 98 Oxygen Delivery Method Room Air Positive well nourished and well developed General Appearance ED: well developed Eyes PERRL and EOMs intact bilaterally Neck supple Resp normal respiratory effort and clear to auscultation bilaterally Cardio Rate: regular rate Rhythm: regular rhythm GI non-tender Palpation: soft Back/Spine no CVA tenderness Extremity normal to inspection Neuro oriented x3 Sensorium / Orientation: alert Psych Attitude: calm Speech: pressured Mood & Affect: anxious Skin Lesions: no lesions Rashes: no rashes MDM MDM MDM Narrative Medical decision making narrative: Patient's prior work-ups are reviewed. EKG is obtained. Patient is given 1 mg of p.o. Ativan. EKG Initial EKG: Attestation: I personally reviewed and interpreted this EKG as follows: Interpretation: Sinus Rhythm (Sinus at 65 with no acute ischemia.) Treatment and Re-Evaluation Comments:: Repeat evaluation patient resting more comfortably. Staff member from [facility] was in the emergency room seeing another patient. She briefly met with the patient to ensure that they could closely follow up. Patient be given a short course of Ativan to help with the acute anxiety until her medications are better able to control her symptoms. Discharge Plan Triage Chief Complaint: Anxiety ED Provider: Yamel Russell Dx/Rx/DC Orders Clinical Impression: Anxiety Instructions: Understanding Anxiety Disorders, Treating Anxiety Disorders ... Prescriptions: New lorazepam [Ativan] 1 mg tablet 1 mg PO TID PRN (Reason: anxiety) Qty: 14 RF: 0 No Action escitalopram oxalate [Lexapro] 10 mg tablet 10 mg PO DAILY Qty: 30 RF: 2 buspirone 7.5 mg tablet 7.5 mg PO TID Qty: 60 RF: 2 Primary Care Provider: Lili Yeh Referrals: Counseling,Center [GROUP OF PHYSICIANS] - As soon as possible Lili Yeh MD [Primary Care Provider] - Disposition Disposition: Home, Self Care Discharge Date/Time: 02/14/21 02:27
[2021-02-14 02:26] VITALS: PULSE 72; RESP 15
== END 2021-02-14 02:27 | disposition home or self-care (01) ==
PROVIDERS: Emergency Provider Emergency Medicine; PCP Internal Medicine
DX: F41.9 Anxiety disorder, unspecified (principal); Z87.891 Personal history of nicotine dependence
CPT/HCPCS: 93005; 99283

== ENCOUNTER 2021-02-25 14:14 | Emergency (ER) | payer MEDICAID, SELFPAY ==
[2021-02-25 14:15] VITALS: PULSE 88; RESP 16; TEMP 36.6; O2SAT 98; BMI 25.7
--- NOTE | 2021-02-25 15:03 | EX.ED.VIS.PS ---
HPI HPI - Psych History of Present Illness Chief Complaint: Anxiety Informant: patient Onset/Context/Timing Onset: Today Conflict: - (everything) Timing: Continuous Current Severity: Severe Maximum Severity: Severe Relieved by: ...if I had Ativan Narrative Narrative: Patient presents saying she is having another anxiety attack, she has been seen here in this emergency department multiple times for the same thing, including once by myself, states that she presents here because she is out of Ativan and requesting more. She was started on BuSpar and Lexapro less than 2 weeks ago to help her anxiety. She states it is not helping at which point I advised her that it takes at least 4 weeks of consistently taking the pill as prescribed until clinical effects are seen. She states that her doctor will not prescribe her Ativan so she comes to the emergency department to get it. She denies any recent illness. [facility] Medical History Acid reflux Anxiety Back pain Constipation Infected dental caries Panic attack Substance abuse Tobacco dependence Home Medications buspirone 7.5 mg tablet 7.5 mg PO TID #60 tab 02/13/21 [Rx Last Taken Unknown] escitalopram oxalate 10 mg tablet 10 mg PO DAILY #30 tab 02/13/21 [Rx Last Taken Unknown] lorazepam [Ativan] 1 mg PO TID PRN #14 tab 02/14/21 [Rx Last Taken Unknown] Allergy/AdvReac Type Severity Reaction Status Date / Time No Known Allergies Allergy Verified 02/25/21 14:15 Family History Other Diabetes Malignant hyperthermia due to anesthesia Social History Smoking Status: Former smoker alcohol intake: never substance use type: does not use ROS ROS ED Constitutional Constitutional ED: Denies chills or fever(s) Eyes Eyes: Denies change in vision or diplopia ENT ENT ED: Denies rhinorrhea or sore throat Cardiovascular Cardiovascular: Denies chest pain or palpitations Respiratory/Chest Respiratory/Chest: Denies cough or dyspnea Gastrointestinal Gastrointestinal: Denies abdominal pain, diarrhea, nausea or vomiting Genitourinary Genitourinary ED: Denies dysuria or hematuria Musculoskeletal Musculoskeletal: Denies back pain or neck pain Integumentary Denies abscess or rash Neurologic Neurologic: Denies headache(s), paresthesias or weakness Psychiatric Psychiatric: Reports anxiety; Denies auditory hallucinations EXAM Physical Exam Const Vital Signs: 02/25/21 14:15 Temperature 97.8 F Temperature Source Temporal Pulse Rate 88 Respiratory Rate 16 Pulse Ox 98 Oxygen Delivery Method Room Air Positive well nourished and well developed General Appearance ED: well developed and NAD HEENT Reports moist mucous membranes normocephalic and atraumatic Eyes PERRL and EOMs intact bilaterally General Eye ED: Negative for scleral icterus Neck no lymphadenopathy and supple Resp normal respiratory effort Back/Spine normal ROM Extremity normal to inspection General Extremety ED: Negative for edema General Extremity: Negative for edema Neuro oriented x3, CN's II-XII intact bilaterally, no sensory deficits noted and gait normal Sensorium / Orientation: alert Motor Exam: strength 5/5 throughout Psych thought process normal, cooperative, activity/motor behavior normal and denies homicidal ideation Psych Narrative: Tearful, anxious, stuttering at times as she is trying to describe her symptoms Skin Lesions: no lesions Rashes: no rashes MDM MDM MDM Narrative Medical decision making narrative: Is advised the patient, she has received prescriptions for controlled substances here in the past from the emergency department and I am not comfortable continuing this trend. She was given an Ativan here to help with her acute anxiety attack and advised that these are addictive medications that require single prescriber. Discharge Plan Triage Chief Complaint: Anxiety ED Provider: Yusuf Valentin Dx/Rx/DC Orders Clinical Impression: Anxiety attack Instructions: Anxiety Disorders Tx Therapy Prescriptions: No Action escitalopram oxalate [Lexapro] 10 mg tablet 10 mg PO DAILY Qty: 30 RF: 2 lorazepam [Ativan] 1 mg tablet 1 mg PO TID PRN (Reason: anxiety) Qty: 14 RF: 0 buspirone 7.5 mg tablet 7.5 mg PO TID Qty: 60 RF: 2 Primary Care Provider: Lili Yeh Referrals: Lili Yeh MD [Primary Care Provider] - Keep Ayde appointment (and/or your psychiatrist - may call to see if there are any cancellations so you can move up your appt) Disposition Disposition: Home, Self Care
[2021-02-25] MEDS: LORazepam 1 MG Tablet PO (15:15)
[2021-02-25 15:24] VITALS: BP 108/71; PULSE 75; RESP 16; O2SAT 98
--- NOTE | 2021-02-25 15:24 | ED.RN ---
REVIEWED D/C INSTRUCTIONS, FOLLOW UP CARE, AND S/S THAT WOULD WARRANT A RETURN TO THE ED WITH PT. PT VERBALIZED AN UNDERSTANDING AND DENIES FURTHER QUESTIONS FOR THIS RN. PT SKIN P/W/D, RESP EVEN AND UNLABORED, PT A&O X 3, NO DISTRESS NOTED. PT AMBULATED OUT OF ED, GAIT STEADY.
== END 2021-02-25 15:25 | disposition home or self-care (01) ==
LOC: ED 15:06
PROVIDERS: Emergency Provider Emergency Medicine; PCP Internal Medicine
DX: F41.0 Panic disorder [episodic paroxysmal anxiety] (principal); Z87.891 Personal history of nicotine dependence
CPT/HCPCS: 99283

== ENCOUNTER 2021-02-26 17:25 | Emergency (ER) | payer MEDICAID, SELFPAY ==
[2021-02-26 17:53] VITALS: BP 118/85; PULSE 86; RESP 16; TEMP 36.6; O2SAT 98; BMI 19.5
--- NOTE | 2021-02-26 18:05 | ED.RN ---
PT ROCKING BACK AND FORTH, CRYING, YELLING PLEASE HELP ME WHILE IN TRIAGE. PT COMPLAINS OF CHEST PAIN, CALLED FOR EKG TO RULE OUT CARDIAC ISSUE. PT CALM WITH STAFF IS NOT INTERACTING WITH PT, STARTS WITH HYSTERICAL BEHAVIOR WHEN STAFF ATTEMPTS TO ASK QUESTIONS. PT STATES I'M NOT JUST HERE FOR MORE ATIVAN.
--- NOTE | 2021-02-26 18:25 | EKG12_ITS ---
Test Reason : CP Blood Pressure : / mmHG Vent. Rate : 082 BPM Atrial Rate : 082 BPM P-R Int : 122 ms QRS Dur : 074 ms QT Int : 372 ms P-R-T Axes : 067 056 071 degrees QTc Int : 434 ms Normal sinus rhythm Normal ECG Confirmed by MAGALIS STINSON, MATT ([id number]), newspaper copy editor COCO FELIPE ([id number]) on 02/28/2021 9:22:19 AM Referred By: BB Confirmed By:MATT BLANCAS MD
[2021-02-26 20:13] VITALS: RESP 18; O2SAT 99
--- NOTE | 2021-02-26 20:33 | EX.ED.DYSGE1 ---
HPI History of Present Illness Chief Complaint: Other, Pain/Inj Narrative Narrative: Patient is here for pain all over and difficulty breathing. She said this has been going on for a long time. She had multiple visits for similar symptoms and was diagnosed with anxiety. She has been treated with multiple medications including Ativan and Vistaril. She is prescribed BuSpar and an antidepressant. She has no thoughts of suicide or homicide. No other associated symptoms like sputum or fever. No injuries. Nothing seemed to bring this on or make this worse. Nothing seems to make it better. [facility] Medical History Acid reflux Anxiety Back pain Constipation Infected dental caries Panic attack Substance abuse Tobacco dependence Home Medications buspirone 7.5 mg tablet 7.5 mg PO TID #60 tab 02/13/21 [Rx Last Taken Unknown] escitalopram oxalate 10 mg tablet 10 mg PO DAILY #30 tab 02/13/21 [Rx Last Taken Unknown] lorazepam [Ativan] 1 mg PO TID PRN #14 tab 02/14/21 [Rx Last Taken Unknown] Allergy/AdvReac Type Severity Reaction Status Date / Time No Known Allergies Allergy Verified 02/26/21 17:57 Family History Other Diabetes Malignant hyperthermia due to anesthesia Social History Smoking Status: Former smoker alcohol intake: never substance use type: does not use ROS ROS ED Constitutional Constitutional ED: Denies chills or fever(s) Eyes Eyes: Denies change in vision ENT ENT ED: Denies ear pain Cardiovascular Cardiovascular: Denies chest pain Respiratory/Chest Respiratory/Chest: Reports dyspnea; Denies cough Gastrointestinal Gastrointestinal: Denies abdominal pain, nausea or vomiting Genitourinary Genitourinary ED: Denies dysuria Musculoskeletal Musculoskeletal: Reports arthralgias, back pain, myalgias and neck pain Integumentary Denies abscess or rash Neurologic Neurologic: Denies headache(s), paresthesias or weakness Psychiatric Psychiatric: Reports anxiety; Denies depression, suicidal ideation or suicidal thoughts Endocrine Endocrinology: Denies polydipsia or polyuria Allergic/Immunologic Allergic/Immunologic ED: Denies mouth swelling or urticaria EXAM Physical Exam Const Vital Signs: 02/26/21 17:53 02/26/21 20:13 Temperature 97.8 F Temperature Source Temporal Pulse Rate 86 Respiratory Rate 16 18 Respiratory Effort Normal Respiratory Pattern Normal Blood Pressure 118/85 H Blood Pressure Mean 96 Pulse Ox 98 99 Oxygen Delivery Method Room Air Room Air Positive well nourished and well developed General Appearance ED: well developed HEENT Negative for trauma or tenderness Eyes PERRL and EOMs intact bilaterally Neck supple Resp normal respiratory effort and clear to auscultation bilaterally Cardio regular rate and regular rhythm GI normal to inspection, nondistended, normoactive bowel sounds Neuro oriented x3 and no sensory deficits noted Sensorium / Orientation: alert Motor Exam: strength 5/5 throughout Psych Mood & Affect: anxious Skin no rashes or lesions noted MDM MDM MDM Narrative Medical decision making narrative: EKG was ordered per nursing protocol. This showed sinus rhythm at a rate 82. No sign of acute ischemia or infarction pattern. Patient was resting comfortably when I went to evaluate her. Soon as I open the door, she started screaming that she could not breathe. She says she has pain all over. She had no other associated symptoms. She had no pertinent findings on exam. Review of her records indicate that she has a history of anxiety. She is not suicidal or homicidal and does not require involuntary admission. I believe the safest course of action is to offer supportive care. I spoke with her at length. I had the nurses check on her frequently. I ordered her a meal tray. We will continue to observe her. I do not feel it is safe to continue to give her controlled substances especially if they have withdrawal side effects. She will need to follow-up with her mental health provider, but this does not need to be emergent. Patient will be discharged when stable. Impression #1 anxiety reaction Discharge Plan Triage Chief Complaint: Other, Pain/Inj ED Provider: Nicola Paulino Dx/Rx/DC Orders Instructions: ED Anxiety Reaction Prescriptions: No Action escitalopram oxalate [Lexapro] 10 mg tablet 10 mg PO DAILY Qty: 30 RF: 2 lorazepam [Ativan] 1 mg tablet 1 mg PO TID PRN (Reason: anxiety) Qty: 14 RF: 0 buspirone 7.5 mg tablet 7.5 mg PO TID Qty: 60 RF: 2 Primary Care Provider: Lili Yeh Referrals: Lili Yeh MD [Primary Care Provider] - Disposition Disposition: Home, Self Care
--- NOTE | 2021-02-26 20:46 | ED.RN ---
PT REFUSED ANY FOOD OR BEVERAGE
== END 2021-02-26 20:52 | disposition home or self-care (01) ==
PROVIDERS: Emergency Provider Emergency Medicine; PCP Internal Medicine
DX: F41.1 Generalized anxiety disorder (principal); Z87.891 Personal history of nicotine dependence
CPT/HCPCS: 93005; 99284

== ENCOUNTER 2021-02-27 21:20 | Emergency (ER) | payer MEDICAID, SELFPAY ==
[2021-02-27 21:21] VITALS: BP 149/62; PULSE 83; RESP 20; TEMP 36.4; O2SAT 97; BMI 18.8
--- NOTE | 2021-02-27 21:50 | ED.RN ---
PT LOUDLY CRYING AND ROCKING STATING SHE NEEDS SOMETHING FOR HER ANXIETY. EXPLAINED THE NEED FOR HER TO F/U WITH HER DR. SHE STATES SHE HAS A APPT. REMINDED HER THAT THE PHYSICIAN S HAVE TOLD HER THEY WILL NOT BE PRESCRIBING MEDICATIONS ANYMORE. PT STATES SHE HAS TALKED TO THE CARPENTRY SUPERVISOR AND THAT THE CARPENTRY SUPERVISOR TOLD HER SHE WOULD BE SEEN. VERIFIED SHE WOULD BE SEEN BUT THAT AT THIS TIME THE PHYSICIAN S HAVE STATED THEY WILL NOT BE PRESCRIBING THE MEDICATIONS THAT SHE IS REQUESTING. PT THEN FOLLOWED A FAMILY OUT THE ER DOORS AND WAS TRYING TO GET A RIDE WITH THEM. WHEN PT RETURNED SHE WAS TAKEN TO RM 15.
--- NOTE | 2021-02-27 21:53 | EKG12_ITS ---
Test Reason : ANXIETY Blood Pressure : / mmHG Vent. Rate : 069 BPM Atrial Rate : 069 BPM P-R Int : 114 ms QRS Dur : 076 ms QT Int : 392 ms P-R-T Axes : 072 069 079 degrees QTc Int : 420 ms Normal sinus rhythm Normal ECG When compared with ECG of 26-FEB-2021 18:25, MANUAL COMPARISON REQUIRED, DATA IS UNCONFIRMED Confirmed by MAGALIS STINSON, MATT ([id number]), assistant editor COCO FELIPE ([id number]) on 03/02/2021 8:32:28 AM Referred By: PO Confirmed By:MATT BLANCAS MD
--- NOTE | 2021-02-27 22:15 | EDS_ITS ---
HPI History of Present Illness Chief Complaint: Anxiety Narrative Narrative: Patient presented with anxiety. Patient has a longstanding history of anxiety and was using Ativan for a long time. Her physician stopped prescribing this for her and transition her to BuSpar and Lexapro. Patient states she is taking this but is not having any symptom improvement. Patient has been to the ER multiple times during the month of January secondary to anxiety reaction. She has been informed that we will no longer prescribe any type of benzodiazepine for her. Patient states that today she is not looking for prescription but is hoping for Ativan in the ER so that she can get through the night. Otherwise she denies any homicidal or suicidal ideation [facility] Medical History Acid reflux Anxiety Back pain Constipation Infected dental caries Panic attack Substance abuse Tobacco dependence Home Medications buspirone 7.5 mg tablet 7.5 mg PO TID #60 tab 02/13/21 [Rx Last Taken Unknown] escitalopram oxalate 10 mg tablet 10 mg PO DAILY #30 tab 02/13/21 [Rx Last Taken Unknown] lorazepam [Ativan] 1 mg PO TID PRN #14 tab 02/14/21 [Rx Last Taken Unknown] Allergy/AdvReac Type Severity Reaction Status Date / Time No Known Allergies Allergy Verified 02/26/21 17:57 Family History Other Diabetes Malignant hyperthermia due to anesthesia Social History Smoking Status: Former smoker alcohol intake: never substance use type: does not use ROS ROS ED Constitutional Constitutional ED: Denies chills or fever(s) ENT ENT ED: Denies sore throat Cardiovascular Cardiovascular: Denies chest pain Respiratory/Chest Respiratory/Chest: Denies cough or dyspnea Gastrointestinal Gastrointestinal: Reports abdominal pain; Denies diarrhea, nausea or vomiting Genitourinary Genitourinary ED: Denies dysuria Musculoskeletal Musculoskeletal: Denies myalgias Integumentary Denies rash Neurologic Neurologic: Denies headache(s) Psychiatric Psychiatric: Reports anxiety; Denies suicidal ideation or suicidal thoughts EXAM Physical Exam Const Vital Signs: 02/27/21 21:21 Temperature 97.6 F L Temperature Source Temporal Pulse Rate 83 Respiratory Rate 20 H Blood Pressure 149/62 H Blood Pressure Mean 91 Pulse Ox 97 Oxygen Delivery Method Room Air Positive well nourished and well developed General Appearance ED: well developed HEENT Reports moist mucous membranes Eyes PERRL and EOMs intact bilaterally Neck supple Resp normal respiratory effort and clear to auscultation bilaterally Cardio regular rate and regular rhythm Rate: other Other Details: Radial pulses are plus 2 out of 4 bilaterally they are equal and symmetric GI normal to inspection, nondistended, normoactive bowel sounds, non-tender, non- distended and no masses GI Narrative: No voluntary guarding or rigidity no pulsatile mass Auscultation: normoactive bowel sounds Palpation: soft Extremity normal to inspection Neuro oriented x3 and CN's II-XII intact bilaterally Sensorium / Orientation: alert Motor Exam: strength 5/5 throughout Psych Psych Narrative: Patient has a nervous/anxious affect without homicidal or s uicidal ideation Skin no rashes or lesions noted MDM MDM MDM Narrative Medical decision making narrative: Patient presented to the ER and in no acute distress with history of anxiety and symptoms consistent with this. She did not have homicidal or suicidal ideation and she was not manic and therefore not requiring any type of psychiatric evaluation or placement. I informed the patient that we will not be prescribing any type of Ativan or benzodiazepine for home and we will no longer give her benzodiazepines in the ER. I did elect to treat her with a IM shot of Vistaril at this time secondary to her anxiety but otherwise patient can be discharged and follow-up with her family doctor on an outpatient basis. Discharge Plan Triage Chief Complaint: Anxiety ED Provider: Vishal Hernandez Dx/Rx/DC Orders Clinical Impression: Anxiety attack Instructions: ED Anxiety Reaction Prescriptions: No Action escitalopram oxalate [Lexapro] 10 mg tablet 10 mg PO DAILY Qty: 30 RF: 2 lorazepam [Ativan] 1 mg tablet 1 mg PO TID PRN (Reason: anxiety) Qty: 14 RF: 0 buspirone 7.5 mg tablet 7.5 mg PO TID Qty: 60 RF: 2 Primary Care Provider: Lili Yeh Referrals: Lili Yeh MD [Primary Care Provider] - Disposition Disposition: Home, Self Care
[2021-02-27] MEDS: hydrOXYzine 50 MG/ML Vial IM (22:24)
== END 2021-02-27 22:26 | disposition home or self-care (01) ==
PROVIDERS: Emergency Provider Emergency Medicine; PCP Internal Medicine
DX: F41.0 Panic disorder [episodic paroxysmal anxiety] (principal); Z87.891 Personal history of nicotine dependence
CPT/HCPCS: 93005; 96372; 99284

== ENCOUNTER 2021-02-28 11:59 | Emergency (ER) | payer MEDICAID, SELFPAY ==
[2021-02-28 12:00] VITALS: BP 108/93; PULSE 90; RESP 16; TEMP 36.3; O2SAT 96; BMI 18.8
[2021-02-28 14:36] LABS: Absolute Lymphocyte Count 1.94 X10^3/uL (0.83-4.51); Absolute Neutrophil Count 2.9 X10^3/uL (2.0-7.7); Basophil# 0.06 X10^3/uL; Basophil% 1.1 % (0-1); Eosinophil# 0.02 X10^3/uL; Eosinophils% 0.4 % (0-5); Hematocrit 42.9 % (37-47); Hemoglobin 14.1 g/dL (12.0-15.0); Lymphocyte # 1.94 X10^3/ul (0.83-4.51); Lymphocyte % 37.2 % (19-41); Mean Corp Hgb Conc 32.9 g/dL (32-36); Mean Corpuscular Hgb 29.6 pg (27.0-32.0); Mean Corpuscular Volume 89.9 fL (81-99); Monocyte# 0.33 X10^3/uL; Monocyte% 6.3 % (0-10); NRBC Flagged by Analyzer 0 % (0-5); Neutrophil # 2.86 X10^3/uL (2.7-7.7); Neutrophil % 54.8 % (47-70); Platelet Count 296 K/mm3 (150-450); RBC Distribution Width CV 12.8 % (11.6-14.6); RBC Distribution Width SD 42.3 fl (35.1-43.9); Red Blood Count 4.77 M/mm3 (4.2-5.4); White Blood Count 5.2 K/mm3 (4.4-11.0)
--- NOTE | 2021-02-28 14:37 | EDS_ITS ---
HPI HPI - Psych History of Present Illness Chief Complaint: Anxiety Informant: patient Onset/Context/Timing Onset: Month(s) Context: Sudden Onset Conflict: Family, Work and Financial Timing: Waxes and wanes Current Severity: Mild Maximum Severity: Severe Worsened by: Situational factors and Alcohol intoxication Relieved by: Ativan Associated Symptoms Associated Symptoms - Psych: Positive for Depressed, Change in Eating and Change in sleeping; Negative for Decreased Interest, Guilt, Decreased Concentration, Hopelessness, Suicidal Thoughts, Easily distracted, Grandiosity, Flight of Ideas, Increased activity, Pressured Speech, Agitated, Angry, Hostile, Threatening, Confusion, Paranoia, Visual Hallucinations and Auditory Hallucinations Specific plan (suicidal thought): Not applicable Narrative Narrative: Patient is a 40-year-old woman with history of anxiety and panic attacks. She was sent in for hospitalization. She denies suicidal homicidal ideation. She states she was prescribed Ativan last time she was seen in the emergency department. She states Dr. Ballard will not prescribe Ativan. She lives with her boyfriend. She states she is a former smoker and no longer uses alcohol. She does admit to occasional marijuana use. She denies headache, visual, ocular auditory symptoms. She denies cardiac respiratory symptoms. She denies GI symptoms. She does admit to being sad. She denies suicidal homicidal thoughts. Prior similar symptoms: Yes Recent Illness/Hospitalization: Yes [facility] Medical History Acid reflux Anxiety Back pain Constipation Infected dental caries Panic attack Substance abuse Tobacco dependence Home Medications buspirone 7.5 mg tablet 7.5 mg PO TID #60 tab 02/13/21 [Rx Last Taken Unknown] escitalopram oxalate 10 mg tablet 10 mg PO DAILY #30 tab 02/13/21 [Rx Last Taken Unknown] Allergy/AdvReac Type Severity Reaction Status Date / Time No Known Allergies Allergy Verified 02/28/21 12:03 Family History Other Diabetes Malignant hyperthermia due to anesthesia Social History (Updated 02/28/21 @ 14:[address] Angel Leonard MD) household members: significant other Smoking Status: Former smoker alcohol intake: never substance use type: does not use ROS ROS ED Constitutional Constitutional ED: Reports weight loss; Denies chills, fever(s), subjective or sweats Eyes Eyes: Denies blurry vision, change in vision or diplopia ENT ENT ED: Denies ear pain, rhinorrhea or sore throat Cardiovascular Cardiovascular: Denies chest pain or palpitations Respiratory/Chest Respiratory/Chest: Denies cough, dyspnea or dyspnea on exertion Gastrointestinal Gastrointestinal: Denies abdominal pain, constipation, diarrhea, nausea or vomiting Genitourinary Genitourinary ED: Reports other Details: Patient raises concern for since she does not use any form of control and has been sexually active. Furthermore, her menses is late ; Denies dysuria, hematuria or urinary frequency Musculoskeletal Musculoskeletal: Denies arthralgias or myalgias Integumentary Denies abscess or rash Neurologic Neurologic: Reports weakness; Denies headache(s) Psychiatric Psychiatric: Reports anxiety; Denies depression, suicidal ideation or suicidal thoughts EXAM Physical Exam Const Vital Signs: 02/28/21 12:00 Temperature 97.4 F L Temperature Source Temporal Pulse Rate 90 Respiratory Rate 16 Blood Pressure 108/93 H Blood Pressure Mean 98 Pulse Ox 96 Oxygen Delivery Method Room Air Positive well nourished and well developed General Appearance ED: well developed and NAD; Negative for pallor HEENT Reports TM's clear and moist mucous membranes HEENT Narrative: Patient is a dentulous. normocephalic and atraumatic Tympanic Membrane ED: Yes TM's clear Eyes PERRL and EOMs intact bilaterally General Eye ED: Negative for pale conjunctiva or scleral icterus Neck no lymphadenopathy, supple and no JVD Resp normal respiratory effort and clear to auscultation bilaterally Cardio S1 normal heart sound, S2 normal heart sound and no murmurs Rate: regular rate Rhythm: regular rhythm GI non-tender, non-distended and no masses Auscultation: normoactive bowel sounds Palpation: soft Neuro oriented x3, CN's II-XII intact bilaterally and no sensory deficits noted Sensorium / Orientation: alert Motor Exam: strength 5/5 throughout Psych mental status grossly normal, thought process normal, cooperative, denies hallucinations, denies homicidal ideation and denies suicidal ideation Appearance: grossly normal Attitude: calm Activity / Motor Behavior: appropriate eye contact and psychomotor slowing Speech: minimal and slow Mood & Affect: flat affect Thought Process: normal thought process Thought Content: normal thought content Attention / Concentration: attention grossly intact and concentration grossly intact Memory / Cognition: memory grossly intact Insight: fair Judgement: fair Skin General Skin Exam: Negative for jaundice or pallor Lesions: no lesions Rashes: no rashes MDM MDM MDM Narrative Medical decision making narrative: Since patient is sexually active does not use any form of control and her menses is late will check test. Since she reports weight loss blood work was obtained to assess renal function, electrolytes, liver enzymes and blood count. Dr. Ballard did call in. He informed the patient that he would not prescribe Ativan. There was no discussion regarding admission to a psychiatric facility. She was now prescribed Ativan after her last ER visit. Patient test is negative. Blood work is unremarkable. Patient will be discharged to home. She will receive information regarding behavioral health services at [facility] as an outpatient since she does not meet criteria for inpatient therapy. Lab Data Labs: Laboratory Results - last 24 hr 02/28/21 02/28/21 02/28/21 14:30 14:30 14:30 WBC 5.2 RBC 4.77 Hgb 14.1 Hct 42.9 MCV 89.9 MCH 29.6 MCHC 32.9 RDW Std Deviation 42.3 RDW Coeff of David 12.8 Plt Count 296 MPV 10.0 Immature Gran % (Auto) 0.200 Neut % (Auto) 54.8 Lymph % (Auto) 37.2 [place] % (Auto) 6.3 Eos % (Auto) 0.4 Baso % (Auto) 1.1 H Absolute Neuts (auto) 2.9 Absolute Lymphs (auto) 1.94 Nucleated RBC % 0 Sodium 138 Potassium 3.9 Chloride 103 Carbon Dioxide 26.0 Anion Gap 9 BUN 14 Creatinine 0.75 Estim Creat Clear Calc 79.07 Est GFR (MDRD) Af Amer 109 Est GFR (MDRD) Non-Af 90 BUN/Creatinine Ratio 18.6 Glucose 78 Calcium 9.5 Total Bilirubin 0.70 AST 17 ALT 20 Alkaline Phosphatase 84 Total Protein 8.3 H Albumin 4.1 Globulin 4.2 Albumin/Globulin Ratio 1.0 TSH 0.99 Serum , Qual NEGATIVE Discharge Plan Triage Chief Complaint: Anxiety ED Provider: Angel Leonard Dx/Rx/DC Orders Clinical Impression: Anxiety with depression Instructions: Anxiety Disorders Tx Therapy, ED Anxiety Reaction Prescriptions: No Action escitalopram oxalate [Lexapro] 10 mg tablet 10 mg PO DAILY Qty: 30 RF: 2 buspirone 7.5 mg tablet 7.5 mg PO TID Qty: 60 RF: 2 Primary Care Provider: Lili Yeh Referrals: Lili Yeh MD [Primary Care Provider] - Disposition Disposition: Home, Self Care
[2021-02-28 14:44] LABS: Internal QC Validated? YES +Cl - CLEAR BKGD; Pregnancy, Serum, hCG Quali. NEGATIVE Negative
[2021-02-28 15:00] LABS: AST(SGOT) 17 U/L (15-37); Alanine Aminotransfer ALT/SGPT 20 U/L (13-56); Albumin, Serum 4.1 g/dL (3.2-5.0); Alkaline Phosphatase 84 U/L (45-117); Anion Gap 9 (5-15); BUN 14 mg/dL (7-18); BUN/Creat Ratio 18.6 RATIO (10-20); Calcium,Total 9.5 mg/dL (8.5-10.1); Chloride 103 mmol/L (98-107); Creatinine, Serum 0.75 mg/dL (0.55-1.02); EST Glomerular Filtration Rate 90 mL/min (>60); Est Glom Filt Rate - Afr Amer 109 mL/min (>60); Estimated Creatinine Clearance 79.07 ml/min; Globulin 4.2 g/dL (2.2-4.2); Glucose 78 mg/dL (74-106); Potassium 3.9 mmol/L (3.5-5.1); Protein, Total 8.3 g/dL (6.4-8.2); Sodium Level 138 mmol/L (136-145); Thyroid Stim Hormone (TSH) 0.99 uIU/mL (0.358-3.74)
--- NOTE | 2021-02-28 22:03 | CM.ED ---
SW Note Referral Source: MD Referral Reason: Patient does not qualify for inpatient but MD is interested in community resources ESAU met with MD Leonard. He reports patient does not qualify for inpatient. He inquired about community resources. ED RN Nedra Farrell advised of the IOP/PHP program to . SW left as SW was due to a court hearing. SW returned back to [facility] from court. MATEUS Gould said that patient was continuing to state she was going inpatient psych. RN stated that patient had said that the MD had not talked to her but she had witnessed MD speaking to the patient. SW met with patient, with RN present. Patient said that she couldn't go home as she screams at home and feels like her inside are upset and if I continue to scream I will get arrested as my neighbors will call . Patient kept stating the her MD said that she needs inpatient psych but this rewriter advised the ED MD had stated patient does not qualify. Patient said that she had been inpatient psych for 3 days in the past for SI. SW explained that there needs to be a concern regarding SI/HI and patient said well, I felt like that 1 month ago. SW explained that patient had reported no SI/HI and her stating a report, one month ago, to receive placement is not an appropriate use of resources. Patient was able to calmly talk to RN and SW. No outburst were observed. Patient apologized for her behavior. She said that her fiance' is her POA and will speak to this rewriter and RN. SW indicated that was fine but then patient got up and left. SW repeatedly talked to patient about the PHP/IOP program and patient continually declined it stating she can't do it as I scream at home. SW repeatedly explained the program including group, individual and psychiatric assessment and monitoring and patient continually said that she could not do it. Patient said that her PCP prescribes her medication. Patient said that she last took her ativan 2 days ago. It is this rewriter's concern that patient may be attempting to utilize emergency room for obtaining ativan. Of note Rhett IGNACIO noted that when patient was in the ED triage she did not do rocking movement unless patient was being looked. There appears to be concern regarding secondary gain by patient to obtain her needs being met. Plan: Home at discharge. Cari DAO
== END 2021-02-28 15:38 | disposition home or self-care (01) ==
PROVIDERS: Emergency Provider Emergency Medicine; PCP Internal Medicine
DX: F41.9 Anxiety disorder, unspecified (principal); F32.A Depression, unspecified; Z87.891 Personal history of nicotine dependence; Z79.899 Other long term (current) drug therapy
CPT/HCPCS: 80053; 84443; 84703; 85025; 99283

== ENCOUNTER 2021-03-03 15:48 | Emergency (ER) | payer MEDICAID, SELFPAY ==
[2021-03-03 15:48] VITALS: BP 137/100; PULSE 87; RESP 16; TEMP 36.1; O2SAT 99; BMI 18.8
--- NOTE | 2021-03-03 16:15 | ED.RN ---
PT WAS RESTING QUIETLY IN SECOND TRIAGE ROOM. WHEN SHE SEEN ANOTHER PATIENT BEING TAKEN BACK TO A ROOM, SHE BEGAN YELLING I CAN'T BREATHE. UNABLE TO REDIRECT. SECURITY CALLED TO BEDSIDE. SHE YELLS YOU HAVE TO GET ME TO A ROOM IMMEDIATELY AND SEDATE ME. I NEED DRUGS, YOU HAVE TO PUT ME OUT. I NEED SEDATED. BREATHING APPROPRIATELY. SHE IS ABLE TO STOP YELLING AND ANSWER QUESTIONS IF NEEDED.
--- NOTE | 2021-03-03 16:43 | EKG12_ITS ---
Test Reason : SUICIDAL Blood Pressure : / mmHG Vent. Rate : 088 BPM Atrial Rate : 088 BPM P-R Int : 118 ms QRS Dur : 078 ms QT Int : 364 ms P-R-T Axes : 081 067 084 degrees QTc Int : 440 ms Normal sinus rhythm Normal ECG Confirmed by LEILANI STINSON, MARIA A ([id number]), society editor COCO FELIPE ([id number]) on 03/06/2021 9:09:27 AM Referred By: DIRK Confirmed By:DAVID DUKE MD
--- NOTE | 2021-03-03 16:50 | EDS_ITS ---
HPI History of Present Illness Chief Complaint: Suicidal Narrative Narrative: 40-year-old female with history of anxiety and multiple visits to the ER for the same presenting with suicidal thoughts and a plan. He contacted the counseling center earlier stating that she was suicidal and told her to staff and the police officers who came to her residence that she wanted to kill herself by cutting her wrist, jumping in front of the car, jumping in front of a train. PFSH PFS Medical History Acid reflux Anxiety Back pain Constipation Infected dental caries Panic attack Substance abuse Tobacco dependence Home Medications buspirone 7.5 mg tablet 7.5 mg PO TID #60 tab 02/13/21 [Rx Last Taken Unknown] escitalopram oxalate 10 mg tablet 10 mg PO DAILY #30 tab 02/13/21 [Rx Last Taken Unknown] Allergy/AdvReac Type Severity Reaction Status Date / Time No Known Allergies Allergy Verified 03/03/21 15:51 Family History Other Diabetes Malignant hyperthermia due to anesthesia Social History household members: significant other Smoking Status: Former smoker alcohol intake: never substance use type: does not use ROS ROS ED Constitutional Constitutional ED: Denies chills, fever(s) or sweats Eyes Eyes: Denies blurry vision or change in vision ENT ENT ED: Denies ear pain or sore throat Cardiovascular Cardiovascular: Denies chest pain, palpitations or racing heartbeat Respiratory/Chest Respiratory/Chest: Denies cough, dyspnea or sputum Gastrointestinal Gastrointestinal: Denies abdominal pain, constipation, diarrhea, nausea or vomiting Genitourinary Genitourinary ED: Denies dysuria, hematuria or urinary frequency Musculoskeletal Musculoskeletal: Denies arthralgias, myalgias or neck pain Integumentary Denies abscess, Abrasions or rash Neurologic Neurologic: Denies headache(s), paresthesias or weakness Psychiatric Psychiatric: Reports panic attacks, suicidal ideation and suicidal thoughts; Denies anxiety or depression Endocrine Endocrinology: Denies polydipsia or polyuria EXAM Physical Exam Const Vital Signs: 03/03/21 15:48 03/03/21 18:06 03/03/21 20:00 Temperature 97 F L Temperature Source Temporal Pulse Rate 87 Respiratory Rate 16 22 H 14 Blood Pressure 137/100 H Blood Pressure Mean 112 Pulse Ox 99 97 Oxygen Delivery Method 03/03/21 22:11 03/03/21 22:30 Temperature 96.6 F L Temperature Source Pulse Rate 124 H 124 H Respiratory Rate 24 H 24 H Blood Pressure 137/100 H Blood Pressure Mean 112 Pulse Ox 99 99 Oxygen Delivery Method Room Air Positive unkempt, alert and oriented x3 General Appearance ED: unkempt; Negative for pallor HEENT Reports normocephalic and head/scalp atraumatic Eyes PERRL and EOMs intact bilaterally Neck no lymphadenopathy and supple Chest Wall inspection of chest normal and palpation of chest normal Resp normal respiratory effort and clear to auscultation bilaterally Auscultation: Negative for rales, rhonchi or wheezes Cardio regular rate and regular rhythm GI normal to inspection, nondistended, normoactive bowel sounds and non-distended Auscultation: normoactive bowel sounds Palpation: soft Narrative: Deferred Extremity normal to inspection General Extremety ED: Yes edema and tenderness General Extremity: edema Neuro oriented x3, CN's II-XII intact bilaterally, moves all extremities, no focal motor deficits and no sensory deficits noted Sensorium / Orientation: alert Motor Exam: strength 5/5 throughout Psych denies homicidal ideation Appearance: unkempt Attitude: No agitated, aggressive and hostile Activity / Motor Behavior: psychomotor agitation and disorganized Thought Content: suicidality and No homicidality Insight: poor Judgement: poor Skin no rashes or lesions noted and no wounds General Skin Exam: Negative for jaundice or pallor MDM MDM MDM Narrative Medical decision making narrative: Patient presenting with suicidal ideation and a plan to jump in front of a train or car. Patient is pink slipped. I did obtain blood work and this is all normal. She is medically cleared. At 1 point patient had to be sedated with Geodon because she kept screaming and trying to get out of her bed. Patient was eventually accepted to [facility] who request that she does not get any more sedating medication. They did state that she could have Ativan, however I do not believe this is appropriate as the patient aggressively seeks Ativan due to addiction. Patient will be monitored in the ER until transferred. Impression: 1. Suicidal ideation 2. history of anxiety Lab Data Attestation: I reviewed the patient's lab results. Labs: Laboratory Results - last 24 hr 03/03/21 03/03/21 03/03/21 16:47 16:47 16:47 WBC 9.9 RBC 5.37 Hgb 15.7 H Hct 48.5 H MCV 90.3 MCH 29.2 MCHC 32.4 RDW Std Deviation 41.8 RDW Coeff of David 12.7 Plt Count 416 MPV 10.6 Immature Gran % (Auto) 0.200 Neut % (Auto) 55.7 Lymph % (Auto) 36.2 [place] % (Auto) 6.5 Eos % (Auto) 0.3 Baso % (Auto) 1.1 H Absolute Neuts (auto) 5.5 Absolute Lymphs (auto) 3.60 Nucleated RBC % 0 Sodium 137 Potassium 3.8 Chloride 102 Carbon Dioxide 20.0 L Anion Gap 15 BUN 22 H Creatinine 1.10 H Estim Creat Clear Calc 53.91 Est GFR (MDRD) Af Amer 70 Est GFR (MDRD) Non-Af 58 L BUN/Creatinine Ratio 20.0 Glucose 90 Calcium 10.2 H Total Bilirubin 0.70 AST 14 L ALT 19 Alkaline Phosphatase 95 Total Protein 9.3 H Albumin 4.6 Globulin 4.7 H Albumin/Globulin Ratio 1.0 Serum , Qual Salicylates 3.4 Urine Opiates Screen Urine Methadone Screen Acetaminophen < 2.0 L Ur Barbiturates Screen Ur Phencyclidine Scrn Ur Amphetamines Screen U Methamphetamin-MDMA U Benzodiazepines Scrn Urine Cocaine Screen U Cannabinoids Screen Ur Drug Screen Comment Ethyl Alcohol < 3.0 03/03/21 03/03/21 16:47 16:50 WBC RBC Hgb Hct MCV MCH MCHC RDW Std Deviation RDW Coeff of David Plt Count MPV Immature Gran % (Auto) Neut % (Auto) Lymph % (Auto) [place] % (Auto) Eos % (Auto) Baso % (Auto) Absolute Neuts (auto) Absolute Lymphs (auto) Nucleated RBC % Sodium Potassium Chloride Carbon Dioxide Anion Gap BUN Creatinine Estim Creat Clear Calc Est GFR (MDRD) Af Amer Est GFR (MDRD) Non-Af BUN/Creatinine Ratio Glucose Calcium Total Bilirubin AST ALT Alkaline Phosphatase Total Protein Albumin Globulin Albumin/Globulin Ratio Serum , Qual NEGATIVE Salicylates Urine Opiates Screen NEGATIVE Urine Methadone Screen NEGATIVE Acetaminophen Ur Barbiturates Screen NEGATIVE Ur Phencyclidine Scrn NEGATIVE Ur Amphetamines Screen NEGATIVE U Methamphetamin-MDMA NEGATIVE U Benzodiazepines Scrn NEGATIVE Urine Cocaine Screen NEGATIVE U Cannabinoids Screen NEGATIVE Ur Drug Screen Comment Ethyl Alcohol Discharge Plan Triage Chief Complaint: Suicidal ED Provider: Tim aJmes Dx/Rx/DC Orders Prescriptions: No Action escitalopram oxalate [Lexapro] 10 mg tablet 10 mg PO DAILY Qty: 30 RF: 2 buspirone 7.5 mg tablet 7.5 mg PO TID Qty: 60 RF: 2 Primary Care Provider: Lili Yeh Referrals: Lili Yeh MD [Primary Care Provider] - Disposition Disposition: Psychiatric Hospital or Unit Discharge Location: [facility] Discharge Date/Time: 03/03/21 22:31
--- NOTE | 2021-03-03 16:50 | ED.RN ---
THIS NURSE IN THE ROOM ATTEMPTING TO HAVE THE PT GET INTO A GOWN. PT INSTANTLY STARTED SCREAMING AND GOT OUT OF THE BED YELLING I NEED MY PHONE. I HAVE TO CALL MY BABY. GIVE ME MY PHONE THIS NURSE ATTEMPTING TO TALK TO THE PT AND EXPLAIN ONCE WE HAVE EVERYTHING COMPLETE WE WILL DISCUSS HER PHONE WHEN SHE IS COOPERATIVE. THE PT GOT EXTREMELY CLOSE TO THIS NURSE AND WAS YELLING I NEED MY PHONE. YOU ARE NOT TAKING MY PHONE. THIS NURSE ATTEMPTED TO EXPLAIN THAT WE NEED TO COMPLETE CARE FIRST. THE PT CONTINUES TO SCREAM AND YELLING I CAN'T BREATHE. YOU HAVE TO SEDATE ME. YOU HAVE TO SEDATE ME. THIS NURSE EXPLAINED AGAIN TO THE PT THAT SHE NEEDS TO COOPERATE AND ONCE WE ARE ABLE TO COMPLETE ALL HER CARE WE WILL TALK ABOUT HER CELL PHONE. PT CHANGED HER CLOTHES AND CALMED DOWN. STOPPED YELLING. STOPPED SAYING SHE CAN'T BREATHE. PT COOPERATIVE FOR THE BLOOD DRAW. THE PT GOT UP AND WALKED TO THE BATHROOM TO PROVIDE A URINE SAMPLE. PT WALKED BACK TO THE ROOM SAT IN THE BED AND HAS BEEN QUIET WITHOUT C/O DIFFICULTY BREATHING. WITHOUT C/O OF NEEDS FOR SEDATION. DR LLOYD NOTIFIED OF THE SAME
--- NOTE | 2021-03-03 16:52 | CM.ED ---
ESAU Note Referral Source: Vangie from Crisis Referral Reason: SI Zee from [facility] called and said that she talked to patient and the patient said that she was in so much pain and I am suicidal... I need help. Patient reports that she has previously cut her arm and attempted to hang herself. Zee has dispatched the police and requested patient be brought in on a pink slip. Zee said that the patient's landlord, Brijesh, called the Board and then the board called her. The landlord stated that he is very unhappy with the treatment that patient has gotten at [facility]. Zee said that the landlord said that patient is not eating or drinking but on the phone she stopped the conversation to get water. Zee said that patient does not want to go far away and doesn't want to go to [facility] for psychiatry as it is far away. Zee said patient is paranoid as patient stated that she had to wait long time in the ED and that everyone was looking at her. Zee said patient said that hospital told her not to come back. Ameena from [facility] did a evaluation on 02/15 for anxiety and panic disorder and patient said that she couldn't breath but denied SI. Zee said that the reimbursement manager, Brijesh is not helpful and appears to be very concerned but is only hearing one side of the story. Zee said that she feels patient needs inpatient psych for stabilization and she is not on her medication. Zee will fax her note to [facility] for review. Per maria ines Stanford RN patient is denying SI. Cari DAO
[2021-03-03 17:05] LABS: Absolute Neutrophil Count 5.5 X10^3/uL (2.0-7.7); Basophil# 0.11 X10^3/uL; Basophil% 1.1 % (0-1); Eosinophil# 0.03 X10^3/uL; Eosinophils% 0.3 % (0-5); Hematocrit 48.5 % (37-47); Hemoglobin 15.7 g/dL (12.0-15.0); Lymphocyte % 36.2 % (19-41); Mean Corp Hgb Conc 32.4 g/dL (32-36); Mean Corpuscular Hgb 29.2 pg (27.0-32.0); Mean Corpuscular Volume 90.3 fL (81-99); Mean Platelet Vol. 10.6 fl (6.2-12.0); Monocyte# 0.65 X10^3/uL; Monocyte% 6.5 % (0-10); NRBC Flagged by Analyzer 0 % (0-5); Neutrophil # 5.53 X10^3/uL (2.7-7.7); Neutrophil % 55.7 % (47-70); Platelet Count 416 K/mm3 (150-450); RBC Distribution Width CV 12.7 % (11.6-14.6); RBC Distribution Width SD 41.8 fl (35.1-43.9); Red Blood Count 5.37 M/mm3 (4.2-5.4); White Blood Count 9.9 K/mm3 (4.4-11.0)
[2021-03-03 17:19] LABS: AST(SGOT) 14 U/L (15-37); Alanine Aminotransfer ALT/SGPT 19 U/L (13-56); Albumin, Serum 4.6 g/dL (3.2-5.0); Alkaline Phosphatase 95 U/L (45-117); Anion Gap 15 (5-15); BUN 22 mg/dL (7-18); Calcium,Total 10.2 mg/dL (8.5-10.1); Chloride 102 mmol/L (98-107); EST Glomerular Filtration Rate 58 mL/min (>60); Est Glom Filt Rate - Afr Amer 70 mL/min (>60); Estimated Creatinine Clearance 53.91 ml/min; Globulin 4.7 g/dL (2.2-4.2); Glucose 90 mg/dL (74-106); Potassium 3.8 mmol/L (3.5-5.1); Protein, Total 9.3 g/dL (6.4-8.2); Sodium Level 137 mmol/L (136-145)
--- NOTE | 2021-03-03 17:36 | ED.RN ---
PT CONTINUES TO YELL OFF AND ON. THIS NURSE IN THE ROOM TO ATTEMPT TO EXPLAIN TO THE PT SINCE SHE HAS COOPERATED WITH CARE AND TREATMENTS, ONCE SHE IS ABLE TO STOP YELLING WE WILL GET HER THE PHONE. THE PT YELLING I CAN'T BREATHE. I'M FUCKED UP. I CAN'T BREATHE. YOU HAVE TO SEDATE ME. THIS NURSE GOT THE PT CELL PHONE AND HANDED IT TO HER. SHE INSTANTLY STOPPED YELLING AND SCREAMING.
[2021-03-03 17:39] LABS: Amphetamine Urine VISTA NEGATIVE (<1000 ng/mL); Barbiturate Urine VISTA NEGATIVE (< 200 ng/mL); Benzodiazepine Urine VISTA NEGATIVE (< 200 ng/mL); Cocaine Urine VISTA NEGATIVE (< 300 ng/mL); Ecstacy Urine VISTA NEGATIVE (< 500 ng/mL); Methadone Urine VISTA NEGATIVE (< 300 ng/mL); PCP Urine VISTA NEGATIVE (< 25 ng/mL); THC Urine VISTA NEGATIVE (< 50 ng/mL); Vista UDS pH Range 5
--- NOTE | 2021-03-03 17:48 | ED.RN ---
PT HAS BEEN PLAYING ON HER PHONE. SOON SHE SAT IT DOWN SHE STARTED YELLING AND SCREAMING. THE PT RECEIVED A TEXT MESSAGE. SHE INSTANTLY STOPPED SCREAMING AND PICKED UP HER PHONE
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
[2021-03-03 18:03] LABS: Internal QC Validated? YES +Cl - CLEAR BKGD; Pregnancy, Serum, hCG Quali. NEGATIVE Negative
[2021-03-03 18:06] VITALS: RESP 22
[2021-03-03] MEDS: Ziprasidone IM 20 MG/ML VIAL IM (18:07)
[2021-03-03 18:10] LABS: Acetaminophen (Tylenol) Level < 2.0 ug/mL (10.0-30.0); Alcohol, Blood (Medical)-Serum < 3.0 mg/dL; Salicylate 3.4 mg/dL (2.8-20.0)
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
--- NOTE | 2021-03-03 19:11 | CM.ED ---
ESAU made referral to [facility] and [facility]. ESAU received call from [facility] and spoke to Clifford. Patient has been accepted. The time patient can leave [facility] is 9:58pm due to Luciano. Accepting MD is Tyron and patient will be in the Intensive treatment unit. RN to RN is [phone]. Yamel will arrange transport. MD and RN notified. ESAU called [facility] and advised of pink slip being sent to them via fax and that patient's name was misspelled but this verse writer crossed it out and put correct spelling in and [facility] said that was fine. ESAU advised of transport between 10-11pm. [facility] said that they usually like report prior to patient being sent but that's ok. ESAU updated patient's mother, Leonor of patient's admission and acceptance to [facility]. ESAU spoke to Yamel. Transport between 10-11pm. Plan: OHP for patient Cari Soriano PAM DAO
[2021-03-03 20:00] VITALS: RESP 14; O2SAT 97
--- NOTE | 2021-03-03 21:14 | ED.RN ---
PT IN THE ROOM YELLING AND SCREAMING. THIS NURSE IN THE ROOM ATTEMPTING TO TALK TO HER. PT CONTINUES TO SCREAM AND YELL. THIS NURSE ATTEMPTING TO SPEAK WITH THE PT. JOANN Armando RN IN THE ROOM. WHEN THIS NURSE AND JOANN WERE TALKING PT STOPPED SCREAMING AND YELLING AND LISTENED TO THE CONVERSATION. EXPLAINED THAT THE PT CAN NOT BE TRANSPORTED UNTIL SHE HAS NOT HAD MEDICATIONS FOR 4 HOURS
--- NOTE | 2021-03-03 21:27 | CM.ED ---
SW Note SW was advised that patient has woken up and is screaming. ESAU called [facility] and spoke to Kaila. Anything more than 2 mg of ativan is chemical restraint and patient will need to be held for an additional 4 hours. ESAU updated manager personnel selection Willard. ESAU called Kaila from [facility] back and said that patient is not violent but is just yelling and screaming that she can't breathe. ESAU explained that the plan is for patient be transported by squad between 10-11pm. [facility]aila thanked this video game script writer for update. Cari DAO
[2021-03-03 22:11] VITALS: PULSE 124; RESP 24; O2SAT 99
[2021-03-03 22:30] VITALS: BP 137/100; PULSE 124; RESP 24; TEMP 35.9; O2SAT 99
== END 2021-03-03 22:31 ==
PROVIDERS: Emergency Provider Student in an Organized Health Care Education/Training Program; PCP Internal Medicine
DX: R45.851 Suicidal ideations (principal); F41.9 Anxiety disorder, unspecified; Z87.891 Personal history of nicotine dependence; Z79.899 Other long term (current) drug therapy
CPT/HCPCS: 80053; 80307; 80329; 82077; 84703; 85025; 87426; 93005; 96372; 99285; G0480; J3486

== ENCOUNTER 2022-10-02 16:20 | Emergency (ER) | payer MEDICAID, SELFPAY ==
[2022-10-02 16:21] VITALS: BP 163/95; PULSE 89; RESP 16; TEMP 36.2; O2SAT 99; BMI 49.5
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
--- NOTE | 2022-10-02 17:40 | RAD_ITS ---
EXAM: XR RIGHT RIBS AND AP CHEST, 3 OR MORE VIEWS CLINICAL INDICATION: right sided rib pain after fall TECHNIQUE: Frontal and oblique views of the right ribs and frontal view of the chest. COMPARISON: 02.10.21 FINDINGS: LUNGS AND PLEURAL SPACES: Unremarkable. No consolidation or edema. No pneumothorax. No effusion. HEART: Unremarkable. Cardiac silhouette not enlarged. MEDIASTINUM: Central airways and mediastinal contour are unremarkable. BONES/JOINTS: Unremarkable. No evidence of displaced rib fractures. RAD/Ribs Uni Min 3V w/PA Chest IMPRESSION: Negative chest and right ribs series. Electronically Signed: Tripp Ascencio MD at 18:08 EDT ,
[2022-10-02] MEDS: Doxycycline 100 MG CAPSULE PO (18:01)
[2022-10-02] MEDS: Ceftriaxone 500 MG Vial IM (18:39)
[2022-10-02 20:13] LABS: HIV - WCH Non-Reactive (Nonreactive); Syphilis Antibodies Non-reactive
[2022-10-02 20:15] LABS: Probe Check PASS; Sample Adequacy Control PASS; Specimen Processing Control PASS; Trichomonas Vag DNA by PCR Negative (Negative)
== END 2022-10-02 19:23 | disposition home or self-care (01) ==
PROVIDERS: Emergency Provider Emergency Medicine; PCP Internal Medicine; Visit Provider Emergency Medicine
DX: Z11.3 Encounter for screening for infections with a predominantly sexual mode of transmission (principal); S20.219A Contusion of unspecified front wall of thorax, initial encounter; X58.XXXA Exposure to other specified factors, initial encounter; Z87.891 Personal history of nicotine dependence
CPT/HCPCS: 36415; 71101; 86703; 86780; 87491; 87591; 87661; 96372; 99283

== ENCOUNTER 2023-01-23 08:45 | Emergency (ER) | payer MEDICAID, SELFPAY ==
[2023-01-23 08:46] VITALS: BP 135/83; PULSE 104; RESP 16; TEMP 36.9; O2SAT 99; BMI 25.2
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
--- NOTE | 2023-01-23 09:00 | RAD_ITS ---
STUDY: X-RAY - UNILATERAL RIBS ( LEFT ) WITH CHEST REASON FOR EXAM: Female, 42 years old. Left-sided chest pain following injury. TECHNIQUE - RIBS: 4 view(s) of the ribs. TECHNIQUE - CHEST: Single PA view of the chest. COMPARISON: Comparison is made with prior chest radiograph dated February 10, 2021. FINDINGS - RIBS: Normal visualized ribs without a demonstrated fracture. FINDINGS - CHEST: Scattered calcified granulomas. No acute abnormality is seen. There is no demonstrated pleural abnormality. Normal size heart. Normal mediastinum and ksenia. Normal visualized pulmonary arteries. Normal visualized aortic arch and descending thoracic aorta. Normal visualized thoracic spine. Normal visualized ribs, clavicles, and shoulders. There is no demonstrated abnormality of the visualized soft tissue structures of the upper abdomen. RAD/Ribs Uni Min 3V w/PA Chest IMPRESSION: RIBS: Normal x-ray examination of the ribs. CHEST: Normal x-ray examination of the chest. Electronically Signed: Brice Ledesma MD at 9:13 EDT ,
[2023-01-23] MEDS: Naproxen 500 MG Tablet PO (09:37)
== END 2023-01-23 09:40 | disposition home or self-care (01) ==
LOC: ED 09:23
PROVIDERS: Emergency Provider Emergency Medicine; Visit Provider Emergency Medicine
DX: S20.20XA Contusion of thorax, unspecified, initial encounter (principal); F41.9 Anxiety disorder, unspecified; Z87.891 Personal history of nicotine dependence; Z79.899 Other long term (current) drug therapy; X58.XXXA Exposure to other specified factors, initial encounter
CPT/HCPCS: 71101; 99282

== ENCOUNTER 2023-05-26 22:07 | Emergency (ER) | payer MEDICAID, SELFPAY ==
[2023-05-26 22:08] VITALS: BP 120/63; PULSE 89; RESP 16; TEMP 38.2; O2SAT 95; BMI 24.1
--- NOTE | 2023-05-26 22:27 | RAD_ITS ---
STUDY: X-RAY CHEST REASON FOR EXAM: Female, 42 years old. cough sob TECHNIQUE: PA and lateral views of the chest. COMPARISON: 02/10/2021. FINDINGS: There are small foci of groundglass opacities within the left mid lower lung which may indicate mild pneumonitis. Otherwise lung mac are clear. There is no demonstrated pleural abnormality. Normal size heart. Normal mediastinum and ksenia. Normal visualized pulmonary arteries. Normal visualized aortic arch and descending thoracic aorta. Normal visualized thoracic spine. Normal visualized ribs, clavicles, and shoulders. There is no demonstrated abnormality of the visualized soft tissue structures of the upper abdomen. RAD/Chest PA and Lateral IMPRESSION: Artifact versus mild left lower lobe pneumonitis, clinical correlation recommended. Electronically Signed: Madhavi Evans MD at 23:22 [facility] ,
[2023-05-26 22:39] VITALS: BP 104/75; PULSE 89; RESP 14; O2SAT 99
[2023-05-26] MEDS: Metoclopramide 10 MG/2 ML Vial 5 MG IV (22:39)
[2023-05-26] MEDS: Ketorolac 30 MG/ML Syringe IV (22:40)
[2023-05-26] MEDS: Lorazepam 2 MG/ML WCH Syringe 0.5 MG IV (22:40)
--- OUTSIDE RECORDS SUMMARY | 2023-05-26 22:40 | XMS RPT_ITS | CCD ---
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 Name Role Phone MARK TINAJERO II Primary Care Unavailable Results Test Name Value Interpretation Reference Range Facil ity Encounters Encounter Date Encounter Type Care Provider Facility Start: 03-06-2023 Emergency department patient visit MARK TINAJERO II Facility:[facility] Start: 02-23-2023 Emergency department patient visit MARK TINAJERO II Facility:[facility] Payers Date Payer Category Payer Medicaid [id number] Progress note 01-17-2021 Note Date & Type Note Facility 01-17-2021 Note HNO ID: [id number] Author: ERINN Cheema Service: Radiology Author Type: Clinical Stadium Attendant Type: Progress Notes Filed: 01/17/2021 8:36 PM Note Text: Radiology Service Progress Note DATE OF SERVICE: January 17, 2021 TIME: 8:36 PM PATIENT IDENTITY VERIFICATION COMPLETED USING TWO (2) STANDARD IDENTIFIERS: Name and Date of confirmed by patient verbally and Name and Date of confirmed by identification band. FALL SCREENING: Has the patient had 2 falls in the last year or 1 fall with injury or currently using an Ambulatory Assistive Device (Walker, Cane, Wheelchair, Crutches, etc.)? Emergency Room Patient: Screened in ED PATIENT GENDER DATA: Female. status: : No status: NO. PATIENT RELEVANT IMPLANT DATA REVIEWED: Yes ALLERGIES: Reviewed and unchanged CONTRAST ALLERGY: NO. EXAM: CT -CONTRAST INDUCED NEPHROPATHY RISK FACTORS: Not applicable CREATININE: Creatinine Date Value Ref Range Status 01/17/2021 0.75 0.58 - 0.96 mg/dL Final 09/28/2020 0.57 (L) 0.58 - 0.96 mg/dL Final 09/27/2020 0.72 0.58 - 0.96 mg/dL Final eGFR-All Other Races Date Value Ref Range Status 01/17/2021 >60 . Final Comment: eGFR (Estimated GFR) Units of measure: mL/min/1.73 meters squared eGFR is derived from the reexpressed MDRD Study equation using the following parameters: serum creatinine, age, gender and race. The creatinine assay has been calibrated to be traceable to IDMS. An eGFR <60 mL/min/1.73m2 for >3 months is consistent with chronic kidney disease. Refer to KDOQI guidelines for clinical interpretation. In patients with unstable renal function, e.g. those with acute kidney injury, the eGFR may not accurately reflect actual GFR. eGFR- Date Value Ref Range Status 01/17/2021 >60 Final P.O.C.T. RESULTS: POC done: Yes, See Lab Tab January 17, 2021 TREATMENT: N/A PERIPHERAL IV DATA: Inpatient - refer to LDA documentation RADIOLOGY DEPARTMENT: CT; Exam(s) Completed: Abdomen/Pelvis SIGNATURE: ERINN Cheema PATIENT NAME: Amira Bullock DATE: January 17, 2021 TIME: 8:36 PM [facility] Summary Purpose Family History No Family History Records FoundNo Family History Records FoundNo Family History Records Found Advance Directives No Advanced Directives Records FoundNo Advanced Directives Records FoundNo Advanced Directives Records Found Additional Source Comments INFORMATION SOURCE (unrecogn ized section and content) DATE CREATED AUTHOR AUTHOR'S ORGANIZ ATION 01/19/2021 [facility] DATE CREATED AUTHOR AUTHOR'S ORGANIZ ATION 03/08/2023 [facility] FOR RECORDS PERTAINING TO PATIENTS WHO ARE OR HAVE BEEN ENROLLED IN A CHEMICAL DEPENDENCY/SUBSTANCEABUSE PROGRAM, SOME INFORMATION MAY BE OMITTED. This clinical summary was aggregated from multiple sources. Caution should be exercised in using it in the provision of clinical care. This summary normalizes information from multiple sources, and as a consequence, information in this document may materially change the coding, format and clinical context of patient data. In addition, data may be omitted in some cases. CLINICAL DECISIONS SHOULD BE BASED ON THE PRIMARY CLINICAL RECORDS. [facility] [employer] [facility]. provides no warranty or guarantee of the accuracy or completeness of information in this document.
--- NOTE | 2023-05-26 22:41 | EDS_ITS ---
HPI History of Present Illness Chief Complaint: Cold Sx Informant: patient Associated Symptoms Associated Symptoms ED: cough Narrative Narrative: Patient presents for 3 days of a terrible migraine although she admits that she has never had migraines before that she knows of. She states she feels like she has the worst case of the flu ever. She has been having fevers, body aches, coughing, some shortness of breath, and she is very frustrated at her inability to smoke for the past 2 to 3 days. She has been vomiting and having diarrhea. She is been drinking fluids and urinating. She states she just feels terrible. [facility] Medical History Acid reflux Anxiety Back pain Constipation Infected dental caries Panic attack Substance abuse Tobacco dependence Home Medications promethazine 25 mg tablet 25 mg PO Q6H PRN PRN Nausea #16 TABLETS 05/27/23 [Rx Last Taken Unknown] Allergy/AdvReac Type Severity Reaction Status Date / Time No Known Allergies Allergy Verified 05/26/23 22:08 Family History Other Diabetes Malignant hyperthermia due to anesthesia Social History household members: significant other Smoking Status: Current every day smoker tobacco type: cigarettes alcohol intake: never substance use type: does not use ROS ROS ED Constitutional Constitutional ED: Reports body ache(s), chills, fatigue, fever(s), headache(s) and malaise Eyes Eyes: Denies change in vision or diplopia ENT ENT ED: Denies rhinorrhea or sore throat Cardiovascular Cardiovascular: Denies chest pain or palpitations Respiratory/Chest Respiratory/Chest: Reports cough, dyspnea and sputum Gastrointestinal Gastrointestinal: Reports diarrhea, nausea and vomiting; Denies abdominal pain Genitourinary Genitourinary ED: Denies dysuria or hematuria Musculoskeletal Musculoskeletal: Denies back pain or neck pain Integumentary Denies abscess or rash Neurologic Neurologic: Reports headache(s); Denies paresthesias or weakness Psychiatric Psychiatric: Reports anxiety; Denies suicidal ideation or suicidal thoughts EXAM Physical Exam Const Vital Signs: 05/26/23 22:08 05/26/23 22:39 Temperature 100.7 F H Temperature Source Oral Pulse Rate 89 89 Respiratory Rate 16 14 Blood Pressure 120/63 104/75 Blood Pressure Mean 82 84 Pulse Ox 95 99 Oxygen Delivery Method Room Air Positive well nourished and well developed Constitutional Narrative: Malaised-appearing, no distress General Appearance ED: well developed and NAD HEENT Reports moist mucous membranes normocephalic and atraumatic Eyes PERRL and EOMs intact bilaterally Neck full ROM, no lymphadenopathy and supple Resp normal respiratory effort and clear to auscultation bilaterally Cardio regular rate, regular rhythm and no murmurs Rate: Negative for tachycardic GI non-tender and non-distended Auscultation: normoactive bowel sounds Palpation: soft Back/Spine no CVA tenderness General Back: other FROM Extremity normal to inspection and no calf tenderness General Extremety ED: Negative for edema, pulses abnormal or tenderness General Extremity: Negative for edema or pulses abnormal Neuro oriented x3, CN's II-XII intact bilaterally and no sensory deficits noted Sensorium / Orientation: awake and alert Motor Exam: strength 5/5 throughout Psych Mood & Affect: anxious and tearful Skin no rashes or lesions noted and no wounds MDM MDM MDM Narrative Medical decision making narrative: Patient with low-grade fever but otherwise normal vital signs and oxygenation and then influenza-like syndrome. Viral swab is positive for influenza A which is consistent with her clinical picture and symptoms. COVID and RSV negative. Chest x-ray 2 views of my interpretation is negative, I reviewed the radiology interpretation, and I do not think she has pneumonia. At this time her pulse ox is 99% room air and she is not tachycardic. After IV fluids, Toradol, Reglan, she is feeling much better along with her nausea and headache as well. Reassured, supportive care advised, no antivirals or antibiotics indicated at this time, she will be given a prescription for promethazine to use as needed for symptoms, as other measures of supportive care recommended. Radiography Diagnostic Testing: Clinical Impression(s) from Imaging Studies Chest X-Ray 05/26/23 22:27 IMPRESSION: Artifact versus mild left lower lobe pneumonitis, clinical correlation recommended. Electronically Signed: Madhavi Evans MD at 23:22 EST , Discharge Plan Triage Chief Complaint: Cold Sx ED Provider: Yusuf Valentin Dx/Rx/DC Orders Clinical Impression: Influenza A Instructions: ED Influenza (Adult) Prescriptions: New promethazine [promethazine] 25 mg tablet 25 mg PO Q6H PRN PRN (Reason: Nausea) Qty: 16 0RF Primary Care Provider: Care Physician,No Primary Referrals: Doctor,Your [Non-Staff] - As Needed Disposition Disposition: Home, Self Care
[2023-05-27 00:12] VITALS: BP 126/69; PULSE 62; RESP 14; TEMP 36.9; O2SAT 99
== END 2023-05-27 00:13 | disposition home or self-care (01) ==
PROVIDERS: Emergency Provider Emergency Medicine; Visit Provider Emergency Medicine
DX: J10.1 Influenza due to other identified influenza virus with other respiratory manifestations (principal); F17.210 Nicotine dependence, cigarettes, uncomplicated
CPT/HCPCS: 71046; 87631; 96374; 96375; 99283; A4216

== ENCOUNTER 2023-06-24 13:11 | Emergency (ER) | payer MEDICAID, SELFPAY ==
[2023-06-24 13:11] VITALS: BP 135/94; PULSE 107; RESP 16; TEMP 36.3; O2SAT 98; BMI 22.9
--- NOTE | 2023-06-24 14:19 | EKG12_ITS ---
Test Reason : MENTAL HEALTH Blood Pressure : / mmHG Vent. Rate : 088 BPM Atrial Rate : 088 BPM P-R Int : 132 ms QRS Dur : 074 ms QT Int : 368 ms P-R-T Axes : 082 053 054 degrees QTc Int : 445 ms Normal sinus rhythm Normal ECG Confirmed by Berto iPna ([id number]), supervising film or videotape editor COCO FELIPE ([id number]) on 06/25/2023 1:44:41 PM Referred By: Confirmed By:Berto Pina
[2023-06-24 14:22] LABS: Absolute Lymphocyte Count 2.05 X10^3/uL (0.83-4.51); Absolute Neutrophil Count 4.5 X10^3/uL (2.0-7.7); Basophil# 0.08 X10^3/uL; Basophil% 1.1 % (0-1); Eosinophil# 0.08 X10^3/uL; Eosinophils% 1.1 % (0-5); Hematocrit 38.4 % (37-47); Lymphocyte # 2.05 X10^3/ul (0.83-4.51); Lymphocyte % 27.8 % (19-41); Mean Corp Hgb Conc 31.3 g/dL (32-36); Mean Corpuscular Hgb 28.6 pg (27.0-32.0); Mean Corpuscular Volume 91.4 fL (81-99); Mean Platelet Vol. 10.8 fl (6.2-12.0); Monocyte# 0.62 X10^3/uL; Monocyte% 8.4 % (0-10); NRBC Flagged by Analyzer 0 % (0-5); Neutrophil # 4.53 X10^3/uL (2.7-7.7); Neutrophil % 61.3 % (47-70); Platelet Count 400 K/mm3 (150-450); RBC Distribution Width SD 46.6 fl (35.1-43.9); White Blood Count 7.4 K/mm3 (4.4-11.0)
[2023-06-24 14:31] LABS: Internal QC Validated? YES +Cl - CLEAR BKGD; Pregnancy, Serum, hCG Quali. NEGATIVE Negative
--- NOTE | 2023-06-24 14:31 | EDS_ITS ---
HPI HPI - Psych History of Present Illness Chief Complaint: Mental Health Informant: patient Narrative Narrative: Patient presents stating that she was court ordered to go to [facility]. I have a note on the chart that patient will be coming in for medical clearance only and she does not to stay in the ER. Once her labs and EKG are obtained they can be faxed to [facility] and patient can be discharged. Patient states that she was in court today and they deemed her incompetent. They are hoping that she can regain her competence with treatment. 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 She is not currently on any medications. Patient also does complain of a sore in her mouth. She states it has been bothering her for about 2 weeks. She states she had oral sex 2 weeks ago and is concerned that she may have herpes. [facility] Medical History Acid reflux Anxiety Back pain Constipation Infected dental caries Panic attack Substance abuse Tobacco dependence Home Medications promethazine 25 mg tablet 25 mg PO Q6H PRN PRN Nausea #16 TABLETS 05/27/23 [Rx Last Taken Unknown] Allergy/AdvReac Type Severity Reaction Status Date / Time No Known Allergies Allergy Verified 06/24/23 13:12 Family History Other Diabetes Malignant hyperthermia due to anesthesia Social History household members: significant other Smoking Status: Current every day smoker tobacco type: cigarettes alcohol intake: never substance use type: does not use ROS ROS ED Constitutional Constitutional ED: Denies chills or fever(s) Eyes Eyes: Denies discharge from eye(s) ENT ENT ED: Reports other Details: Pain under her tongue. ; Denies discharge from eye(s), rhinorrhea or sore throat Cardiovascular Cardiovascular: Denies chest pain or palpitations Respiratory/Chest Respiratory/Chest: Denies cough or dyspnea Gastrointestinal Gastrointestinal: Denies abdominal pain, nausea or vomiting Genitourinary Genitourinary ED: Denies dysuria Musculoskeletal Musculoskeletal: Denies back pain or extremity pain Integumentary Denies Abrasions or rash Neurologic Neurologic: Denies headache(s) or weakness Psychiatric Psychiatric: Denies anxiety or depression Allergic/Immunologic Allergic/Immunologic ED: Denies lip swelling or urticaria EXAM Physical Exam Const Vital Signs: 06/24/23 13:11 06/24/23 15:11 Temperature 97.3 F L Temperature Source Temporal Pulse Rate 107 H 82 Respiratory Rate 16 18 Blood Pressure 135/94 H 120/87 H Blood Pressure Mean 107 98 Pulse Ox 98 100 Oxygen Delivery Method Room Air Room Air Positive well nourished and well developed General Appearance ED: well developed HEENT HEENT Narrative: two small blisters noted on the gums of the mandible. No surrounding erythema. She complains of pain under her tongue but there are no lesions, erythema, or edema to this area. Eyes PERRL and EOMs intact bilaterally Neck no lymphadenopathy Resp normal respiratory effort and clear to auscultation bilaterally Cardio Rate: regular rate Rhythm: regular rhythm GI non-tender Palpation: soft Extremity normal to inspection Neuro oriented x3 and no sensory deficits noted Motor Exam: strength 5/5 throughout Psych mental status grossly normal Attitude: calm Speech: normal speech MDM MDM MDM Narrative Medical decision making narrative: EKG obtained to evaluate for cardiac arrhythmia/ischemia. Labwork obtained to evaluate for leukocytosis, anemia, and electrolyte derangement. Herpes simplex culture will be obtained from the lesions along the gumline. History & Record Review Discussion w/independent historian: Patient Lab Data Attestation: I reviewed the patient's lab results. Labs: Laboratory Results - last 24 hr 06/24/23 06/24/23 13:30 14:45 WBC 7.4 RBC 4.20 Hgb 12.0 Hct 38.4 MCV 91.4 MCH 28.6 MCHC 31.3 L RDW Std Deviation 46.6 H RDW Coeff of David 14.0 Plt Count 400 MPV 10.8 Immature Gran % (Auto) 0.300 Neut % (Auto) 61.3 Lymph % (Auto) 27.8 [place] % (Auto) 8.4 Eos % (Auto) 1.1 Baso % (Auto) 1.1 H Absolute Neuts (auto) 4.5 Absolute Lymphs (auto) 2.05 Nucleated RBC % 0 Sodium 141 Potassium 3.5 Chloride 110 H Carbon Dioxide 25.0 Anion Gap 6 BUN 18 Creatinine 0.86 Estim Creat Clear Calc 75.12 Est GFR (MDRD) Af Amer 92 Est GFR (MDRD) Non-Af 76 BUN/Creatinine Ratio 21.0 H Glucose 114 H Calcium 9.4 Total Bilirubin 0.50 Direct Bilirubin 0.24 AST 19 ALT 19 Alkaline Phosphatase 70 Total Protein 7.9 Albumin 3.8 Globulin 4.1 Serum , Qual NEGATIVE Urine Opiates Screen NEGATIVE Urine Methadone Screen NEGATIVE Ur Barbiturates Screen NEGATIVE Ur Phencyclidine Scrn NEGATIVE Ur Amphetamines Screen POSITIVE H MDMA (Ecstasy) Screen POSITIVE H U Benzodiazepines Scrn NEGATIVE Urine Cocaine Screen NEGATIVE U Cannabinoids Screen POSITIVE H Ur Drug Screen Comment Ethyl Alcohol < 3.0 Treatment and Re-Evaluation Narrative: CBC was a white count 7.4 with a hemoglobin of 12.0. Normal differential. Chemistry studies are unremarkable with normal renal function. Glucose is 114. LFTs are normal. test negative. EtOH is less than 3. Tox screen is positive for amphetamines, MDMA, and cannabinoids. EKG is sinus rhythm 88 bpm with no evidence of acute ischemia. Swab for oral herpes infection has been sent. Patient will be advised that if this is positive and she needs treatment she will be called. She will be discharged at this time to go to [facility] and we will fax the information to them. Discharge Plan Triage Chief Complaint: Mental Health ED Provider: Yamel Russell Dx/Rx/DC Orders Clinical Impression: Medical clearance for psychiatric admission Prescriptions: No Action promethazine [promethazine] 25 mg tablet 25 mg PO Q6H PRN PRN (Reason: Nausea) Qty: 16 0RF Primary Care Provider: Care Physician,No Primary Referrals: Care Physician,No Primary [Primary Care Provider] - Activity Restrictions/Additional Instructions: Your lab results and EKG have been faxed to [facility]. Disposition Disposition: Home, Self Care
[2023-06-24 14:36] LABS: Anion Gap 6 (5-15); BUN 18 mg/dL (7-18); Calcium,Total 9.4 mg/dL (8.5-10.1); Chloride 110 mmol/L (98-107); Creatinine, Serum 0.86 mg/dL (0.55-1.02); EST Glomerular Filtration Rate 76 mL/min (>60); Est Glom Filt Rate - Afr Amer 92 mL/min (>60); Estimated Creatinine Clearance 75.12 ml/min; Glucose 114 mg/dL (74-106); Potassium 3.5 mmol/L (3.5-5.1); Sodium Level 141 mmol/L (136-145)
[2023-06-24 14:44] LABS: AST(SGOT) 19 U/L (15-37); Alanine Aminotransfer ALT/SGPT 19 U/L (13-56); Albumin, Serum 3.8 g/dL (3.2-5.0); Alkaline Phosphatase 70 U/L (45-117); Bilirubin, Direct 0.24 mg/dL (0.00-0.30); Globulin 4.1 g/dL (2.2-4.2); Protein, Total 7.9 g/dL (6.4-8.2)
[2023-06-24 14:46] LABS: Alcohol, Blood (Medical)-Serum < 3.0 mg/dL
[2023-06-24 15:11] VITALS: BP 120/87; PULSE 82; RESP 18; O2SAT 100
[2023-06-24 15:19] LABS: Amphetamine Urine VISTA POSITIVE (<1000 ng/mL); Barbiturate Urine VISTA NEGATIVE (< 200 ng/mL); Benzodiazepine Urine VISTA NEGATIVE (< 200 ng/mL); Cocaine Urine VISTA NEGATIVE (< 300 ng/mL); Ecstacy Urine VISTA POSITIVE (< 500 ng/mL); Methadone Urine VISTA NEGATIVE (< 300 ng/mL); PCP Urine VISTA NEGATIVE (< 25 ng/mL); THC Urine VISTA POSITIVE (< 50 ng/mL); Vista UDS pH Range 5
[2023-06-24 15:37] VITALS: BP 120/87; PULSE 82; RESP 18; TEMP 36.8; O2SAT 100
== END 2023-06-24 15:38 | disposition home or self-care (01) ==
PROVIDERS: Emergency Provider Emergency Medicine; Visit Provider Emergency Medicine
DX: F30.9 Manic episode, unspecified (principal); F17.210 Nicotine dependence, cigarettes, uncomplicated
CPT/HCPCS: 80048; 80076; 80307; 80320; 84703; 85025; 87255; 93005; 99282; G0480